=== PATIENT | female | born 1940 | race Caucasian/White ===

== ENCOUNTER 2020-07-15 12:53 | Inpatient (IN) | payer MEDICARE, SELFPAY ==
[2020-07-15 13:02] VITALS: BP 177/106; BP 199/72; PULSE 66; PULSE 68; RESP 16; TEMP 36.7; O2SAT 98; BMI 30.9
--- NOTE | 2020-07-15 13:06 | CT_ITS ---
EXAMINATION: CT BRAIN AND CT CERVICAL SPINE WITHOUT CONTRAST. CLINICAL INFORMATION: Fall. COMPARISON: CT brain 08/06/2019 TECHNIQUE: 5 mm thin axial and reformatted 2 mm thin coronal and sagittal images of brain were obtained. 3 mm thin axial and reformatted 2 mm thin sagittal and coronal images of cervical spine were obtained. DLP 1280. FINDINGS: Brain: There is no acute intra-axial, external bleed, masses, collection or midline shift. There is no acute infarction in evolution. The virk to white matter difference is maintained. The lateral ventricles are symmetrical and enlarged. Bone windows reveal no calvarial abnormality. Bilateral paranasal sinuses and mastoid air cells no calvarial abnormality seen. There is no scalp soft tissue abnormality. Cervical spine: There is reversal of cervical lordosis. The vertebral heights and alignment is normal. Is mild loss of C4-C5 and C6-C7 disc heights with ventral and posterior spondylosis. No lytic or sclerotic process seen. There is moderate left C2-C3, C3-C4, C4-C5 facet joint arthropathy. There is mild bilateral narrowing of neural foramina at these disc levels. There is mild ventral and posterior spondylosis dorsal spine. No visible acute fracture, dislocation or lytic process seen. The prevertebral and paravertebral soft tissues are normal. There is widely patent. The lung apices are clear. CT/CT cervical spine wo con IMPRESSION: No acute intracranial process seen. There is no acute fracture, dislocation or subluxation of cervical spine. Is bilateral facet joint arthropathy. No lytic or sclerotic process seen. Mild ventral and dorsal spondylosis is noted.
--- NOTE | 2020-07-15 13:06 | ECG_ITS ---
Test Reason : FALL Blood Pressure : / mmHG Vent. Rate : 065 BPM Atrial Rate : 065 BPM P-R Int : 156 ms QRS Dur : 082 ms QT Int : 432 ms P-R-T Axes : 035 000 033 degrees QTc Int : 449 ms Normal sinus rhythm Normal ECG When compared with ECG of 02-APR-2017 02:52, No significant change was found Referred By: Sera Aquino Electronically Signed By:CHELLY JONAS MD
--- NOTE | 2020-07-15 13:06 | CT_ITS ---
EXAMINATION: CT CHEST, CT ABDOMEN AND PELVIS WITHOUT CONTRAST CLINICAL INFORMATION: Fall. COMPARISON: CTA chest 04/02/2017. TECHNIQUE: 5 mm axial and reformatted 3 mm thin sagittal and coronal images of chest, abdomen and pelvis were obtained without contrast. DLP: 1050 mGy-cm FINDINGS: CHEST: The lungs are expanded with bilateral upper lobe ground-glass attenuation changes in the anterior segments and mild reticular interstitial prominence throughout both upper lobes and lower lobes. No acute consolidation or contusion seen. There is no pleural effusion or thickening. The heart size is enlarged. No pericardial effusion seen. The central trachea and bronchi are widely patent. Thyroid lobes are symmetrical and normal. No abnormal mediastinal or hilar lymph nodes seen. There is no pericardial effusion. The axilla and chest wall appear unremarkable. ABDOMEN AND PELVIS: The liver is lobulated and heterogeneous likely secondary to cirrhosis. The gallbladder has been removed. A few collateral vessels are seen in the splenic hilum. Visualized spleen, pancreas and bilateral adrenal glands are unremarkable. Both kidneys are normal size, shape and position. There is a 4 mm radiopaque calculi midpole left kidney. No caliectasis or hydronephrosis seen. There is a 9 mm exophytic cyst midpole right kidney. There is scattered stool and gas seen throughout the colon without distention. There is diffuse sigmoid diverticulosis and a few scattered diverticula in descending colon but no mural thickening and pericolic fat stranding. The small bowel loops are normal caliber. Appendix is normal caliber. No inflammatory changes seen in the abdomen. Imaging through the pelvis reveals unremarkable urinary bladder. The uterus is not visualized probably removed or atrophied. There is no free fluid. Bone windows reveal degenerative disc changes with vacuum disc phenomena L4-L5 disc level with mild spondylosis. There is bilateral L5-S1 and L4-L5 facet joint arthropathy. CT/CT abdomen pelvis wo con IMPRESSION: No acute abnormality seen in the chest. Mild interstitial prominence throughout both lungs could be secondary to breathing artifact or underlying chronic changes. No acute process seen in the abdomen. Nonobstructive small radiopaque calculi midpole left kidney. Exophytic cyst midpole right kidney. Likely cirrhosis of liver. Evidence of cholecystectomy. Diffuse sigmoid and scattered rest of the colon diverticulosis.
--- NOTE | 2020-07-15 13:13 | ED.FALL ---
HPI - Fall General Chief Complaint: Fall Stated Complaint: fall Time Seen by Provider: 07/15/20 13:05 Source: patient, EMS and automotive [employer] interpreter Mode of arrival: EMS Limitations: no limitations History of Present Illness HPI Narrative: patient states she went to the bathroom became dizzy and fell had LOC woke up on floor on floor all night since 1am complaint: fall Onset (ago): hour(s) (suspect 1 am) Fall from: out of bed Fall witnessed: no Place fall occurred: home Loss of consciousness: yes Prolonged down time: yes Symptoms prior to fall: dizziness Location of injury: head and pelvis Location of injury - extremities: left: shoulder Quality: aching Associated symptoms (after fall): headache Related Data Home Medications Medication Instructions Recorded Confirmed aspirin 81 mg PO DAILY 07/15/20 07/15/20 calcium carbonate-vitamin D3 1 tab PO BID 07/15/20 07/15/20 [Calcium 600 + D(3)] cholecalciferol (vitamin D3) 50 mcg PO DAILY 07/15/20 07/15/20 [Vitamin D3] lisinopril 40 mg PO DAILY 07/15/20 07/15/20 loratadine 10 mg PO DAILY 07/15/20 07/15/20 omeprazole 40 mg PO DAILY 07/15/20 07/15/20 oxybutynin chloride [Ditropan XL] 10 mg PO DAILY 07/15/20 07/15/20 quetiapine [Seroquel] 50 mg PO DAILY 07/15/20 07/15/20 sertraline 50 mg PO DAILY 07/15/20 07/15/20 trazodone 50 mg PO BEDTIME PRN 07/15/20 07/15/20 Allergies Allergy/AdvReac Type Severity Reaction Status Date / Time ibuprofen [IBUPROFEN] Allergy Intermediate SWELLING Unverified 05/26/20 15:33 cashew nut Allergy Unknown UNKNOWN Unverified 05/26/20 15:33 nut - unspecified [nut] Allergy Unknown UNKNOWN Unverified 05/26/20 15:33 perfume Allergy Unknown UNKNOWN Unverified 05/26/20 15:33 acetaminophen [From PERCOCET] AdvReac Unknown NAUSEA & Unverified 05/26/20 15:33 VOMITING oxycodone [From PERCOCET] AdvReac Unknown NAUSEA & Unverified 05/26/20 15:33 VOMITING DETERGENT Allergy Unknown UNKNOWN Uncoded 05/26/20 15:33 Review of Systems Review of Systems: Constitutional : No Fever, No Chills ENT/Mouth : No Ear Pain, No Hoarseness, No sore throat Eyes: No Eye Pain, No Swelling, No Redness, No Foreign Body Cardiovascular : No Chest Pain, No SOB Respiratory : No Cough, No Dyspnea Gastrointestinal : No Nausea, No Vomiting, No Diarrhea, No abdominal Pain Genitourinary : No Dysuria, No Hematuria Musculoskeletal : positive joint pain, No Myalgias, No Joint Swelling Skin : No Skin lacerations, No rash Neuro : No Weakness, No Numbness, No Loss of Consciousness, No Dizziness, pos Headache Psych : No Anxiety/Panic, No Depression Heme/Lymph: no easy bruising, no Lymphadenopathy Endocrine : No Polyuria, No Polydipsia All other systems reviewed and are negative [facility] Past Medical History Medical History Asthma Dementia HTN (hypertension) Social History Social History (Updated 07/15/20 @ 13:34 by Sera Aquino DO) Alcohol intake: never Smoking Status: Never smoker Use of substances other than those prescribed or required for medical reasons: No Advance Directives: No Advance Directives Information Provided: Yes Physical Exam Vital Signs: Vital Signs: Last Vital Signs Temp 98.0 F 07/15/20 13:02 Pulse 68 07/15/20 13:02 Resp 16 07/15/20 13:02 BP 177/106 H 07/15/20 13:02 Pulse Ox 98 07/15/20 13:02 Body Mass Index 30.9 Appearance: Alert. Oriented X3. No acute distress. Eyes: Pupils equal, round and reactive to light. ENT: Pharynx normal. Neck: Normal inspection. Neck supple. CVS: Normal heart rate and rhythm. Pulses normal. Respiratory: No respiratory distress. Breath sounds normal. Abdomen: Soft and nontender. Skin: Skin warm and dry. Normal skin color. Normal skin turgor. Extremities: No lower extremity edema. No calf ttp L hip erythema on lateral aspect, ttp L shoulder - distal NV intact, back normal Neuro: Oriented X 3. No motor deficit. No sensory deficit. Course Course Course Narrative: increase in LFTs, more weak, fall risk at home, ammonia pending, CT scans negative for trauma, IVF ordered, will likely need admit for falls/weakness repeat CPK MDM - Fall MDM Narrative Medical decision making narrative: 80 yo female with hx of dementia, HTN here with fall at home - EMS notes sometime around 1 am, she c/o head stroke and LOC, has redness on L hip and L shoulder - NV intact, GCS 15, will need labs, EKG, CT head/cspine/chest/abdomen and pelvis for trauma, reports dizziness prior to event when she went to get up to use the bathroom Lab Data Result diagrams: 07/15/20 14:01 07/15/20 14: Labs: Lab Results 07/15/20 07/15/20 07/15/20 Range/Units 14: 14: 14:01 WBC 6.1 (4.8-10.8) X10*3/uL RBC 4.46 (4.20-5.50) X10*6/uL Hgb 14.8 (12.0-16.0) g/dl Hct 44.4 (37-47) % MCV 99.6 H (80-98) fL MCH 33.2 H (27.0-33.0) pg MCHC 33.3 (31.0-35.0) g/dl RDW 14.0 (11.0-16.0) % Plt Count 109 L (160-400) X10*3/uL MPV 11.2 (9.4-12.3) fL Immature Gran % (Auto) 0.5 H (0.0-0.4) % Neut % (Auto) 54.5 (45-73) % Lymph % (Auto) 34.9 (20-40) % [place] % (Auto) 8.3 (2-11) % Eos % (Auto) 1.5 (0-4) % Baso % (Auto) 0.3 (0-2) % Lymph # (Auto) 2.1 (1.2-4.9) X10*3/uL [place] # (Auto) 0.5 (0.1-1.2) X10*3/uL Eos # (Auto) 0.1 (0.0-0.4) X10*3/uL Baso # (Auto) 0.0 (0.0-0.2) X10*3/uL Abs Immat Gran (auto) 0.03 (0.00-0.03) X10*3/uL Absolute Neuts (auto) 3.3 (2.0-8.3) X10*3/uL Absolute Nucleated RBC 0.000 (0.0-0.012) X10*3/uL Nucleated RBC % (auto) 0.0 (0.0-0.2) /100WBC Sodium 143 (135-145) mmol/L Potassium 4.5 (3.3-5.1) mmol/l Chloride 107 (96-108) mmol/L Carbon Dioxide 28 (22-29) mmol/L Anion Gap 13 (12-20) BUN 18 H (9-16) mg/dL Creatinine 0.75 (0.5-1.4) mg/dL Estim Creat Clear Calc 51.2 Estimated GFR > 60 Random Glucose 101 (60-115) mg/dL Lactic Acid 1.2 (0.5-2.0) mmol/L Calcium 8.6 (8.4-10.2) mg/dL Magnesium 1.7 (1.6-2.6) mg/dL Total Bilirubin 2.9 H (0.0-1.0) mg/dL Direct Bilirubin 1.6 H (0.0-0.5) mg/dL AST 110 H (5-31) U/L ALT 41 H (0-31) U/L Alkaline Phosphatase 121 H (39-117) U/L Total Creatine Kinase 1490 H (26-140) U/L Troponin I High Sens (<3.5-17.0) ng/L Total Protein 6.6 (6.5-8.0) g/dL Albumin 3.3 L (3.5-5.0) g/dL Lipase 26 (8-78) U/L Ethyl Alcohol mg/dL 07/15/20 07/15/20 Range/Units 14:01 14:28 WBC (4.8-10.8) X10*3/uL RBC (4.20-5.50) X10*6/uL Hgb (12.0-16.0) g/dl Hct (37-47) % MCV (80-98) fL MCH (27.0-33.0) pg MCHC (31.0-35.0) g/dl RDW (11.0-16.0) % Plt Count (160-400) X10*3/uL MPV (9.4-12.3) fL Immature Gran % (Auto) (0.0-0.4) % Neut % (Auto) (45-73) % Lymph % (Auto) (20-40) % [place] % (Auto) (2-11) % Eos % (Auto) (0-4) % Baso % (Auto) (0-2) % Lymph # (Auto) (1.2-4.9) X10*3/uL [place] # (Auto) (0.1-1.2) X10*3/uL Eos # (Auto) (0.0-0.4) X10*3/uL Baso # (Auto) (0.0-0.2) X10*3/uL Abs Immat Gran (auto) (0.00-0.03) X10*3/uL Absolute Neuts (auto) (2.0-8.3) X10*3/uL Absolute Nucleated RBC (0.0-0.012) X10*3/uL Nucleated RBC % (auto) (0.0-0.2) /100WBC Sodium (135-145) mmol/L Potassium (3.3-5.1) mmol/l Chloride (96-108) mmol/L Carbon Dioxide (22-29) mmol/L Anion Gap (12-20) BUN (9-16) mg/dL Creatinine (0.5-1.4) mg/dL Estim Creat Clear Calc Estimated GFR Random Glucose (60-115) mg/dL Lactic Acid (0.5-2.0) mmol/L Calcium (8.4-10.2) mg/dL Magnesium (1.6-2.6) mg/dL Total Bilirubin (0.0-1.0) mg/dL Direct Bilirubin (0.0-0.5) mg/dL AST (5-31) U/L ALT (0-31) U/L Alkaline Phosphatase (39-117) U/L Total Creatine Kinase (26-140) U/L Troponin I High Sens 8.1 (<3.5-17.0) ng/L Total Protein (6.5-8.0) g/dL Albumin (3.5-5.0) g/dL Lipase (8-78) U/L Ethyl Alcohol < 10 mg/dL ECG Data Attestation: I personally reviewed and interpreted this ECG as follows: ECG interpretation date: 07/15/20 ECG interpretation time: 13:32 Interpretation: Rate: 65 Rhythm: NSR Keller: left, LVH Normal P waves. Normal PAMLEA. Normal QRS complex. ST T wave : normal qTC: normal prior studies: no acute ischemia The study has been interpreted contemporaneously by me. . Discharge Plan Discharge Clinical Impression: Syncope, Rhabdomyolysis, Elevated liver enzymes Patient Disposition: Admitted As Inpatient Prescriptions: No Action trazodone 50 mg Tablet 50 mg PO BEDTIME PRN (Reason: Sleep) RF: 0 oxybutynin chloride [Ditropan XL] 10 mg Tablet Extended Release 24hr 10 mg PO DAILY RF: 0 omeprazole 40 mg Capsule,Delayed Release(Dr/Ec) 40 mg PO DAILY RF: 0 aspirin 81 mg Tablet,Delayed Release (Dr/Ec) 81 mg PO DAILY RF: 0 lisinopril 40 mg Tablet 40 mg PO DAILY RF: 0 sertraline 50 mg Tablet 50 mg PO DAILY RF: 0 loratadine 10 mg Tablet 10 mg PO DAILY RF: 0 quetiapine [Seroquel] 50 mg Tablet 50 mg PO DAILY RF: 0 calcium carbonate-vitamin D3 [Calcium 600 + D(3)] 600 mg(1,500mg) -400 unit Tablet 1 tab PO BID RF: 0 cholecalciferol (vitamin D3) [Vitamin D3] 50 mcg (2,000 unit) Tablet 50 mcg PO DAILY RF: 0
[2020-07-15 14:07] LABS: MANUAL DIFF FLAG NO
[2020-07-15 14:10] LABS: Basophils Percent Auto 0.3 % (0-2); Eosinophils Absolute Auto 0.1 X10*3/uL (0.0-0.4); Eosinophils Percent Auto 1.5 % (0-4); Hematocrit 44.4 % (37-47); Hemoglobin 14.8 g/dl (12.0-16.0); Imm Gran Abs Auto 0.03 X10*3/uL (0.00-0.03); Imm Gran Pct Auto 0.5 % (0.0-0.4); Lymphocytes Absolute Auto 2.1 X10*3/uL (1.2-4.9); Lymphocytes Percent Auto 34.9 % (20-40); Mean Corpuscular HGB Conc 33.3 g/dl (31.0-35.0); Mean Corpuscular Hemoglobin 33.2 pg (27.0-33.0); Mean Corpuscular Volume 99.6 fL (80-98); Mean Platelet Volume 11.2 fL (9.4-12.3); Monocytes Absolute Auto 0.5 X10*3/uL (0.1-1.2); Monocytes Percent Auto 8.3 % (2-11); Neutrophils Absolute Auto 3.3 X10*3/uL (2.0-8.3); Neutrophils Percent Auto 54.5 % (45-73); Platelet Count 109 X10*3/uL (160-400); Red Blood Count 4.46 X10*6/uL (4.20-5.50); White Blood Count 6.1 X10*3/uL (4.8-10.8)
[2020-07-15] MEDS: ondansetron HCL 4 MG/2 ML VIAL IVPUSH (14:28)
[2020-07-15 14:33] LABS: Lactic Acid 1.2 mmol/L (0.5-2.0)
[2020-07-15 14:43] LABS: Troponin-I High Sensitivity 8.1 ng/L (<3.5-17.0)
[2020-07-15 14:54] LABS: Alanine Aminotransferase 41 U/L (0-31); Albumin Level 3.3 g/dL (3.5-5.0); Alkaline Phosphatase 121 U/L (39-117); Anion Gap 13 (12-20); Aspartate Amino Transferase 110 U/L (5-31); Bilirubin Direct 1.6 mg/dL (0.0-0.5); Bilirubin Total 2.9 mg/dL (0.0-1.0); Blood Urea Nitrogen 18 mg/dL (9-16); Calcium 8.6 mg/dL (8.4-10.2); Carbon Dioxide 28 mmol/L (22-29); Chloride 107 mmol/L (96-108); Creatinine Clr Calc Pharmacy 51.2; Estimated Glomerular Filt Rate > 60; Glucose Random 101 mg/dL (60-115); Lipase 26 U/L (8-78); Magnesium 1.7 mg/dL (1.6-2.6); Potassium 4.5 mmol/l (3.3-5.1); Sodium 143 mmol/L (135-145); Total Protein 6.6 g/dL (6.5-8.0)
[2020-07-15 15:00] LABS: Ethanol < 10 mg/dL
[2020-07-15] MEDS: 0.9 % Sodium Chloride 1,000 ML 999 ML IVCONT (16:22)
[2020-07-15 16:43] LABS: Glucose Urine UA NEG (NEG); Leukocyte Esterase Urine NEG (NEG); Nitrite Urine NEG (NEG); PH 6.5 (5.0-8.0); Urine Blood NEG (NEG); Urine Ketones NEG (NEG); Urine Protein NEG (NEG-TRACE)
[2020-07-15 16:46] LABS: Appearance Urine CLEAR; Color Urine YELLOW
[2020-07-15 17:03] LABS: Ammonia 60 umol/L (13-55)
--- NOTE | 2020-07-15 18:01 | P.HPHOSP_ITS ---
History of Present Illness Date of Service: 07/15/20 Chief Complaint: fall, syncope, muscle pain an 80 years old female with PMH of mild dementia, HTN, GERD, depression who presents to the hospital after sustaining a fall at home and stay onhe the floor for many hours. The patient reported waking up in the middle of the night to go to the bathroom. She is not sure what happened exactly if she tripped or she ju Tst lost her conscious and fell to the floor . She does not think she lost her conscious but remember hitting the floor with her head and left side of her body. She was unable to stand up again and remain the floor for so many hours trying to crawl to the bathroom. Seems she spent 1 day on the floor until her son came in the morning and so her. She lives by herself and her son visited her to take care of her needs. She she denies any headache, dizziness. In the emergency a CT scan of the head, spine, chest, abdomen and pelvis were done for trauma came back negative for any acute findings. Picture of liver cirrhosis suspected as well. Admitted for further evaluation and treatment. Review of Systems Review of Systems: No fever, chills or weakness No chest pain, palpitation No shortness of breath or coughing No abdominal pain, nausea or vomiting No urinary symptoms left-sided pain to her shoulder and hip [facility] Medical History Asthma Dementia HTN (hypertension) Social History (Updated 07/15/20 @ 13:34 by Sera Aquino DO) Alcohol intake: never Smoking Status: Never smoker Use of substances other than those prescribed or required for medical reasons: No Advance Directives: No Advance Directives Information Provided: Yes Meds Allergies Allergy/AdvReac Type Severity Reaction Status Date / Time ibuprofen [IBUPROFEN] Allergy Intermediate SWELLING Unverified 05/26/20 15:33 cashew nut Allergy Unknown UNKNOWN Unverified 05/26/20 15:33 nut - unspecified [nut] Allergy Unknown UNKNOWN Unverified 05/26/20 15:33 perfume Allergy Unknown UNKNOWN Unverified 05/26/20 15:33 acetaminophen [From PERCOCET] AdvReac Unknown NAUSEA & Unverified 05/26/20 15:33 VOMITING oxycodone [From PERCOCET] AdvReac Unknown NAUSEA & Unverified 05/26/20 15:33 VOMITING DETERGENT Allergy Unknown UNKNOWN Uncoded 05/26/20 15:33 Home Medications Medication Instructions Recorded Confirmed Type aspirin 81 mg PO DAILY 07/15/20 07/15/20 History calcium carbonate-vitamin D3 1 tab PO BID 07/15/20 07/15/20 History [Calcium 600 + D(3)] cholecalciferol (vitamin D3) 50 mcg PO DAILY 07/15/20 07/15/20 History [Vitamin D3] lisinopril 40 mg PO DAILY 07/15/20 07/15/20 History loratadine 10 mg PO DAILY 07/15/20 07/15/20 History omeprazole 40 mg PO DAILY 07/15/20 07/15/20 History oxybutynin chloride [Ditropan XL] 10 mg PO DAILY 07/15/20 07/15/20 History quetiapine [Seroquel] 50 mg PO DAILY 07/15/20 07/15/20 History sertraline 50 mg PO DAILY 07/15/20 07/15/20 History trazodone 50 mg PO BEDTIME PRN 07/15/20 07/15/20 History Physical Exam Vital Signs and Narrative: Vital Signs: Last Vital Signs Temp 98.0 F 07/15/20 13:02 Pulse 68 07/15/20 13:02 Resp 16 07/15/20 13:02 BP 177/106 H 07/15/20 13:02 Pulse Ox 98 07/15/20 13:02 Body Mass Index 30.9 Constitutional : Alert, oriented to time and place,not in distress Neck : Normal inspection, Supple Cardiovascular : RRR, S1 S2, no lower extremity edema Respiratory : Good bilateral air entry, no crackles, wheezes or rhonchi Gastrointestinal: soft, lax, Normal bowel sounds, Non tender Skin : Warm/Dry, bruises on the left shoulder and hip from the fall, no open wounds or drainage. Neurological : Alert & oriented x3, No focal deficit Results Labs CBC and Chem 7: 07/15/20 14:01 07/15/20 14:01 Labs: Laboratory Results - last 24 hr 07/15/20 07/15/20 07/15/20 14:01 14:01 14:01 MCV 99.6 H MCH 33.2 H MCHC 33.3 RDW 14.0 Plt Count 109 L MPV 11.2 Immature Gran % (Auto) 0.5 H Neut % (Auto) 54.5 Lymph % (Auto) 34.9 [place] % (Auto) 8.3 Eos % (Auto) 1.5 Baso % (Auto) 0.3 Lymph # (Auto) 2.1 [place] # (Auto) 0.5 Eos # (Auto) 0.1 Baso # (Auto) 0.0 Abs Immat Gran (auto) 0.03 Absolute Neuts (auto) 3.3 Absolute Nucleated RBC 0.000 Nucleated RBC % (auto) 0.0 Anion Gap 13 Estim Creat Clear Calc 51.2 Estimated GFR > 60 Random Glucose 101 Lactic Acid 1.2 Calcium 8.6 Magnesium 1.7 Total Bilirubin 2.9 H Direct Bilirubin 1.6 H AST 110 H ALT 41 H Alkaline Phosphatase 121 H Ammonia Total Creatine Kinase 1490 H Troponin I High Sens Total Protein 6.6 Albumin 3.3 L Lipase 26 Urine Color Urine Appearance Urine pH Ur Specific Energy Urine Protein Urine Glucose (UA) Urine Ketones Urine Blood Urine Nitrite Ur Leukocyte Esterase Ethyl Alcohol 07/15/20 07/15/20 07/15/20 14:01 14:28 16:30 MCV MCH MCHC RDW Plt Count MPV Immature Gran % (Auto) Neut % (Auto) Lymph % (Auto) [place] % (Auto) Eos % (Auto) Baso % (Auto) Lymph # (Auto) [place] # (Auto) Eos # (Auto) Baso # (Auto) Abs Immat Gran (auto) Absolute Neuts (auto) Absolute Nucleated RBC Nucleated RBC % (auto) Anion Gap Estim Creat Clear Calc Estimated GFR Random Glucose Lactic Acid Calcium Magnesium Total Bilirubin Direct Bilirubin AST ALT Alkaline Phosphatase Ammonia 60 H Total Creatine Kinase Troponin I High Sens 8.1 Total Protein Albumin Lipase Urine Color Urine Appearance Urine pH Ur Specific Energy Urine Protein Urine Glucose (UA) Urine Ketones Urine Blood Urine Nitrite Ur Leukocyte Esterase Ethyl Alcohol < 10 07/15/20 16:30 MCV MCH MCHC RDW Plt Count MPV Immature Gran % (Auto) Neut % (Auto) Lymph % (Auto) [place] % (Auto) Eos % (Auto) Baso % (Auto) Lymph # (Auto) [place] # (Auto) Eos # (Auto) Baso # (Auto) Abs Immat Gran (auto) Absolute Neuts (auto) Absolute Nucleated RBC Nucleated RBC % (auto) Anion Gap Estim Creat Clear Calc Estimated GFR Random Glucose Lactic Acid Calcium Magnesium Total Bilirubin Direct Bilirubin AST ALT Alkaline Phosphatase Ammonia Total Creatine Kinase Troponin I High Sens Total Protein Albumin Lipase Urine Color YELLOW Urine Appearance CLEAR Urine pH 6.5 Ur Specific Energy 1.020 Urine Protein NEG Urine Glucose (UA) NEG Urine Ketones NEG Urine Blood NEG Urine Nitrite NEG Ur Leukocyte Esterase NEG Ethyl Alcohol Imaging Radiologist's Impressions: Impressions Abdomen/Pelvis CT 07/15/20 13:06 IMPRESSION: No acute abnormality seen in the chest. Mild interstitial prominence throughout both lungs could be secondary to breathing artifact or underlying chronic changes. No acute process seen in the abdomen. Nonobstructive small radiopaque calculi midpole left kidney. Exophytic cyst midpole right kidney. Likely cirrhosis of liver. Evidence of cholecystectomy. Diffuse sigmoid and scattered rest of the colon diverticulosis. Cervical Spine CT 07/15/20 13:06 IMPRESSION: No acute intracranial process seen. There is no acute fracture, dislocation or subluxation of cervical spine. Is bilateral facet joint arthropathy. No lytic or sclerotic process seen. Mild ventral and dorsal spondylosis is noted. Chest CT 07/15/20 13:06 IMPRESSION: No acute abnormality seen in the chest. Mild interstitial prominence throughout both lungs could be secondary to breathing artifact or underlying chronic changes. No acute process seen in the abdomen. Nonobstructive small radiopaque calculi midpole left kidney. Exophytic cyst midpole right kidney. Likely cirrhosis of liver. Evidence of cholecystectomy. Diffuse sigmoid and scattered rest of the colon diverticulosis. Head CT 07/15/20 13:06 IMPRESSION: No acute intracranial process seen. There is no acute fracture, dislocation or subluxation of cervical spine. Is bilateral facet joint arthropathy. No lytic or sclerotic process seen. Mild ventral and dorsal spondylosis is noted. Assessment and Plan (1) Fall: Status: Acute (2) Increased ammonia level: Status: Acute (3) Syncope: Qualifiers: Syncope type: unspecified Qualified Code(s): R55 - Syncope and collapse Status: Acute (4) Rhabdomyolysis: Qualifiers: Rhabdomyolysis type: non-traumatic Qualified Code(s): M62.82 - Rhabdomyolysis Status: Acute an 80 years old female with PMH of mild dementia, HTN, GERD, depression who presents to the hospital after sustaining a fall at home Rhabdomyolysis Secondary to fall Significantly elevated CK to almost 2000 BUN increase, creatinine is still close to normal Keep on IV fluid to prevent kidney damage Monitor intake and output Follow BMP Syncope Unclear if the patient syncopized or just tripped or fall Keep on telemetry for any arrhythmia S CT scan of the head negative for any acute findings To do physical therapy Transaminitis Elevated ammonia level Picture of cirrhosis on the CT scan of the abdomen and pelvis baseline blood work showed transaminitis previously Will try to get more informationAnd monitor liver function HTN next Lyme continue lisinopril and aspirin Mood Disorder continue sertraline, Seroquel and trazodone DVT PPX Lovenox
[2020-07-15 19:06] LABS: SARS COV2 PCR INHOUSE NEGATIVE (Negative)
[2020-07-15 20:10] VITALS: BP 152/62; PULSE 70; RESP 20; TEMP 36.9; O2SAT 98
[2020-07-15] MEDS: Enoxaparin Sodium 40 MG/0.4 ML SYRINGE SUBCUT (20:59)
[2020-07-15] MEDS: 0.9 % Sodium Chloride 1,000 ML 100 ML IVCONT (20:59)
[2020-07-15 23:42] VITALS: BP 185/97; PULSE 70; RESP 20; TEMP 37.1; O2SAT 98
[2020-07-16] VITALS (13 sets, daily range): BP systolic 140–184; BP diastolic 49–81; PULSE 59–72; RESP 18–20; TEMP 36.7–37.1; O2SAT 96–100
[2020-07-16] MEDS: hydrALAZINE HCl 20 MG/ML VIAL 5 MG IVPUSH (01:35)
[2020-07-16] MEDS: Labetalol HCL 100 MG/20 ML VIAL 10 MG IVPUSH (03:35)
[2020-07-16] MEDS: Omeprazole 40 MG CAPSULE.DR PO (06:02)
[2020-07-16] MEDS: 0.9 % Sodium Chloride 1,000 ML 100 ML IVCONT (06:26)
[2020-07-16 07:10] LABS: Hematocrit 39.4 % (37-47); Mean Corpuscular Hemoglobin 33.1 pg (27.0-33.0); Mean Corpuscular Volume 100.3 fL (80-98); Mean Platelet Volume 12.6 fL (9.4-12.3); Platelet Count 119 X10*3/uL (160-400); Red Blood Count 3.93 X10*6/uL (4.20-5.50); Red Cell Distribution Width 14.2 % (11.0-16.0); White Blood Count 6.1 X10*3/uL (4.8-10.8)
[2020-07-16 07:32] LABS: Ammonia 86 umol/L (13-55)
[2020-07-16 08:07] LABS: Alanine Aminotransferase 38 U/L (0-31); Albumin Level 2.9 g/dL (3.5-5.0); Alkaline Phosphatase 97 U/L (39-117); Anion Gap 10 (12-20); Aspartate Amino Transferase 92 U/L (5-31); Bilirubin Direct 1.4 mg/dL (0.0-0.5); Bilirubin Total 2.5 mg/dL (0.0-1.0); Blood Urea Nitrogen 15 mg/dL (9-16); Carbon Dioxide 27 mmol/L (22-29); Chloride 108 mmol/L (96-108); Creatinine Clr Calc Pharmacy 49.8; Estimated Glomerular Filt Rate > 60; Glucose Random 82 mg/dL (60-115); Potassium 4.1 mmol/l (3.3-5.1); Sodium 141 mmol/L (135-145); Total Protein 5.5 g/dL (6.5-8.0)
[2020-07-16] MEDS: 0.9 % Sodium Chloride Flush 3 ML SYRINGE IVFLUSH (08:59)
[2020-07-16] MEDS: Lactulose 20 GM/30 ML SOLUTION PO (09:12)
[2020-07-16] MEDS: amLODIPine Besylate 2.5 MG TABLET PO (09:13)
[2020-07-16] MEDS: QUEtiapine Fumarate 50 MG TABLET PO (09:13)
[2020-07-16] MEDS: Aspirin Enteric Coated 81 MG TABLET.DR PO (09:13)
[2020-07-16] MEDS: lisinopriL 40 MG TABLET PO (09:13)
[2020-07-16] MEDS: Sertraline HCL 50 MG TABLET PO (09:14)
--- NOTE | 2020-07-16 10:39 | MHC.CM.PN ---
CM spoke with Daughter/Yolande (Patient has Dementia) Patient lives alone and she uses both a cane and a walker to assist with mobility. Yolande is her Mother's CCA SKIDDER (12 hours and 45 minutes/week) and the goal for dc is to return home with a new referral to [facility], for home PT, with CCA's approval.Patient's Son/Sinan is the HCP and PCP is Dr. Carine Patel.CM has initiated and will follow for dc planning. IMM addressed with Yolande and the original has been mailed certified letter to her and a copy has been placed on the chart.
--- NOTE | 2020-07-16 15:35 | HO.PM.IMPN ---
Subjective Subjective Date of Service: 07/16/20 Interval History: the patient was seen and evaluated this morning Laying in bed, feels comfortable Denies any fever, chills or shortness of breath Pain has improved since last night, she reports seeing main and water in the room which all disappeared and she thing that the Holy spirit reaching out to her No reported other overnight events. Physical Exam Vital Signs: Vital Signs: Last Vital Signs Temp 98.8 F 07/16/20 15: Pulse 64 07/16/20 15: Resp 20 07/16/20 15: BP 174/62 H 07/16/20 15: Pulse Ox 99 07/16/20 15: Body Mass Index 30.9 Constitutional : Alert, oriented to time and place,not in distress Neck : Normal inspection, Supple Cardiovascular : RRR, S1 S2, no lower extremity edema Respiratory : Good bilateral air entry, no crackles, wheezes or rhonchi Gastrointestinal: soft, lax, Normal bowel sounds, Non tender Skin : Warm/Dry, bruises on the left shoulder and hip from the fall, no open wounds or drainage. Neurological : Alert & oriented x3, No focal deficit Objective Data Current Medications Generic Name Dose Route Start Last Admin Trade Name Freq PRN Reason Stop Dose Admin Al Hydroxide/Mg Hydroxide 30 ml 07/15/20 19:51 Magnesium Hydrox/Alum Hydrox 30 Ml Oral.Susp PO Q4H PRN Heartburn/Nausea Amlodipine Besylate 2.5 mg 07/16/20 09:00 07/16/20 09:13 Amlodipine Besylate 2.5 Mg Tablet PO 2.5 mg DAILY JL Administration Protocol Aspirin 81 mg 07/16/20 09:00 07/16/20 09:13 Aspirin Enteric Coated 81 Mg Tablet.Dr PO 81 mg DAILY JL Administration Enoxaparin Sodium 40 mg 07/15/20 21:00 07/15/20 20:59 Enoxaparin Sodium 40 Mg/0.4 Ml Syringe SUBCUT 40 mg Q24H JL Administration Sodium Chloride 1,000 mls @ 60 mls/hr 07/15/20 19:51 07/16/20 11:18 Ns IVCONT 60 mls/hr .[id number] JL Infusion Lisinopril 40 mg 07/16/20 09:00 07/16/20 09:13 Lisinopril 40 Mg Tablet PO 40 mg DAILY JL Administration Protocol Omeprazole 40 mg 07/16/20 06:30 07/16/20 06:02 Omeprazole 40 Mg Capsule. PO 40 mg DAILY@0630 [facility] Administration Pharmacy Consult 1 each 07/15/20 14:59 Consult Rx Perform Med Rec MISCELLANE ONCE PRN Consult order Quetiapine Fumarate 50 mg 07/16/20 09:00 07/16/20 09:13 Quetiapine Fumarate 50 Mg Tablet PO 50 mg DAILY JL Administration Sertraline HCl 50 mg 07/16/20 09:00 07/16/20 09:14 Sertraline Hcl 50 Mg Tablet PO 50 mg DAILY JL Administration Sodium Chloride 3 ml 07/16/20 00:00 07/16/20 08:59 0.9 % Sodium Chloride Flush 3 Ml Syringe IVFLUSH 3 ml QSHIFT JL Administration Trazodone HCl 50 mg 07/15/20 19:51 Trazodone Hcl 50 Mg Tablet PO BEDTIME PRN Sleep Labs CBC & Chem 7: 07/16/20 06:10 07/16/20 06:10 Assessment and Plan (1) Fall: Status: Acute (2) Increased ammonia level: Status: Acute (3) Syncope: Status: Acute (4) Rhabdomyolysis: Status: Acute Assessment and Plan: an 80 years old female with PMH of mild dementia, HTN, GERD, depression who presents to the hospital after sustaining a fall at home Rhabdomyolysis Secondary to fall Significantly elevated CK to 1500 BUN and creatinine improved, close to normal Keep on IV fluid to prevent kidney damage Monitor intake and output Follow BMP Fall From the story seems like the patient has just tripped for fall and did not syncopized No arrhythmia on telemetry CT scan of the head negative for any acute findings physical therapy Transaminitis Elevated ammonia level improving Picture of cirrhosis on the CT scan of the abdomen and pelvis, no clear underlying cause but reported to be known by patient and family baseline blood work showed transaminitis previously monitor liver function to be follow as outpatient with pcp uncontrolled HTN continue lisinopril and aspirin start Amlodipine monitor BP Mood Disorder continue sertraline, Seroquel and trazodone DVT PPX Lovenox
[2020-07-16] MEDS: Enoxaparin Sodium 40 MG/0.4 ML SYRINGE SUBCUT (22:00)
[2020-07-17] VITALS (7 sets, daily range): BP systolic 130–184; BP diastolic 60–78; PULSE 69–82; RESP 18–20; TEMP 36.4–37.6; O2SAT 93–98
[2020-07-17] MEDS: Omeprazole 40 MG CAPSULE.DR PO (06:27)
[2020-07-17 07:28] LABS: Hematocrit 38.3 % (37-47); Imm Gran Abs Auto 0.01 X10*3/uL (0.00-0.03); Imm Gran Pct Auto 0.2 % (0.0-0.4); MANUAL DIFF FLAG SCAN; Mean Corpuscular Hemoglobin 33.2 pg (27.0-33.0); PLT CLUMP 1; Red Cell Distribution Width 14.6 % (11.0-16.0); SCAN SMEAR FLAG 1
[2020-07-17 07:30] LABS: Basophils Percent Auto 0.2 % (0-2); Eosinophils Absolute Auto 0.2 X10*3/uL (0.0-0.4); Eosinophils Percent Auto 4.2 % (0-4); Hemoglobin 12.7 g/dl (12.0-16.0); Lymphocytes Absolute Auto 2.3 X10*3/uL (1.2-4.9); Lymphocytes Percent Auto 48.6 % (20-40); Mean Corpuscular HGB Conc 33.2 g/dl (31.0-35.0); Mean Platelet Volume 12.2 fL (9.4-12.3); Monocytes Absolute Auto 0.6 X10*3/uL (0.1-1.2); Monocytes Percent Auto 12.7 % (2-11); Neutrophils Absolute Auto 1.6 X10*3/uL (2.0-8.3); Neutrophils Percent Auto 34.1 % (45-73); Platelet Count 100 X10*3/uL (160-400); Red Blood Count 3.83 X10*6/uL (4.20-5.50); White Blood Count 4.8 X10*3/uL (4.8-10.8)
[2020-07-17 07:50] LABS: Alanine Aminotransferase 36 U/L (0-31); Albumin Level 2.8 g/dL (3.5-5.0); Alkaline Phosphatase 99 U/L (39-117); Anion Gap 10 (12-20); Aspartate Amino Transferase 74 U/L (5-31); Bilirubin Total 1.7 mg/dL (0.0-1.0); Blood Urea Nitrogen 15 mg/dL (9-16); Calcium 7.4 mg/dL (8.4-10.2); Carbon Dioxide 26 mmol/L (22-29); Chloride 111 mmol/L (96-108); Creatinine Clr Calc Pharmacy 49.8; Estimated Glomerular Filt Rate > 60; Glucose Random 82 mg/dL (60-115); Potassium 4.2 mmol/l (3.3-5.1); Sodium 143 mmol/L (135-145); Total Protein 5.4 g/dL (6.5-8.0)
[2020-07-17 07:54] LABS: SLIDE REVIEW VERIFIED
[2020-07-17] MEDS: lisinopriL 40 MG TABLET PO (08:40)
[2020-07-17] MEDS: amLODIPine Besylate 2.5 MG TABLET PO (08:40)
[2020-07-17] MEDS: Aspirin Enteric Coated 81 MG TABLET.DR PO (08:43)
[2020-07-17] MEDS: 0.9 % Sodium Chloride Flush 3 ML SYRINGE IVFLUSH (08:43)
[2020-07-17] MEDS: Sertraline HCL 50 MG TABLET PO (08:43)
[2020-07-17] MEDS: QUEtiapine Fumarate 50 MG TABLET PO (08:43)
[2020-07-17] MEDS: Lactulose 20 GM/30 ML SOLUTION PO ×2 (11:00→20:08)
--- NOTE | 2020-07-17 13:32 | P.PNIM_ITS ---
Subjective Subjective Date of Service: 07/17/20 Interval History: the patient was seen and evaluated this morning Laying in bed, feels comfortable Denies any fever, chills or shortness of breath Complaining pain in joints specially the hip Seems to be mildly confused this morning more than yesterday No reported other overnight events. Review of Systems Review of Systems: Yes all other systems are reviewed and are negative Constitutional No fever, chills or weakness No chest pain, palpitation No shortness of breath or coughing No abdominal pain, nausea or vomiting No urinary symptoms No any rash or wounds Physical Exam Vital Signs: Vital Signs: Last Vital Signs Temp 97.6 F 07/17/20 11:34 Pulse 80 07/17/20 11:34 Resp 18 07/17/20 11:34 BP 130/67 07/17/20 11:34 Pulse Ox 97 07/17/20 11:34 Body Mass Index 30.9 Constitutional : Alert, oriented to time and place,not in distress Neck : Normal inspection, Supple Cardiovascular : RRR, S1 S2, no lower extremity edema Respiratory : Good bilateral air entry, no crackles, wheezes or rhonchi Gastrointestinal: soft, lax, Normal bowel sounds, Non tender Skin : Warm/Dry, bruises on the left shoulder and hip from the fall, no open w ounds or drainage. Neurological : Alert & oriented x3, No focal deficit Objective Data Current Medications Generic Name Dose Route Start Last Admin Trade Name Freq PRN Reason Stop Dose Admin Al Hydroxide/Mg Hydroxide 30 ml 07/15/20 19:51 Magnesium Hydrox/Alum Hydrox 30 Ml Oral.Susp PO Q4H PRN Heartburn/Nausea Amlodipine Besylate 2.5 mg 07/17/20 09:00 07/17/20 08:40 Amlodipine Besylate 2.5 Mg Tablet PO 2.5 mg DAILY JL Administration Protocol Aspirin 81 mg 07/16/20 09:00 07/17/20 08:43 Aspirin Enteric Coated 81 Mg Tablet.Dr PO 81 mg DAILY JL Administration Enoxaparin Sodium 40 mg 07/15/20 21:00 07/16/20 22:00 Enoxaparin Sodium 40 Mg/0.4 Ml Syringe SUBCUT 40 mg Q24H JL Administration Sodium Chloride 1,000 mls @ 60 mls/hr 07/15/20 19:51 07/17/20 09:30 Ns IVCONT Not Given .[id number] [facility] Lisinopril 40 mg 07/16/20 09:00 07/17/20 08:40 Lisinopril 40 Mg Tablet PO 40 mg DAILY [facility] Administration Protocol Omeprazole 40 mg 07/16/20 06:30 07/17/20 06:27 Omeprazole 40 Mg Capsule. PO 40 mg DAILY@0630 [facility] Administration Pharmacy Consult 1 each 07/15/20 14:59 Consult Rx Perform Med Rec MISCELLANE ONCE PRN Consult order Quetiapine Fumarate 50 mg 07/16/20 09:00 07/17/20 08:43 Quetiapine Fumarate 50 Mg Tablet PO 50 mg DAILY [facility] Administration Sertraline HCl 50 mg 07/16/20 09:00 07/17/20 08:43 Sertraline Hcl 50 Mg Tablet PO 50 mg DAILY JL Administration Sodium Chloride 3 ml 07/16/20 00:00 07/17/20 08:43 0.9 % Sodium Chloride Flush 3 Ml Syringe IVFLUSH 3 ml QSHIFT [facility] Administration Trazodone HCl 50 mg 07/15/20 19:51 Trazodone Hcl 50 Mg Tablet PO BEDTIME PRN Sleep Labs CBC & Chem 7: 07/17/20 06:47 07/17/20 06:47 Microbiology Microbiology Results: Microbiology 07/15/20 14:28 Blood - Venous Blood Culture - Preliminary No growth after 24 hours. 07/15/20 14:01 Blood - Venous Blood Culture - Preliminary No growth after 24 hours. Assessment and Plan (1) Fall: Status: Acute (2) Increased ammonia level: Status: Acute (3) Syncope: Status: Acute (4) Rhabdomyolysis: Status: Acute Assessment and Plan: an 80 years old female with PMH of mild dementia, HTN, GERD, depression who presents to the hospital after sustaining a fall at home Metabolic encephalopathy Likely secondary to inpatient delirium Avoid medications that might worsen mentation Re orientation Use small dose of Seroquel of needed Rhabdomyolysis Secondary to fall Resolved Gentle IVF, to DC Monitor intake and output Follow BMP Fall From the story seems like the patient has just tripped for fall and did not syncopized No arrhythmia on telemetry CT scan of the head negative for any acute findings Pending physical therapy Transaminitis Elevated ammonia level improving Picture of cirrhosis on the CT scan of the abdomen and pelvis, no clear underlying cause but reported to be known by patient and family baseline blood work showed transaminitis previously monitor liver function to be follow as outpatient with pcp uncontrolled HTN continue lisinopril and aspirin start Amlodipine monitor BP Mood Disorder continue sertraline, Seroquel and trazodone DVT PPX Lovenox
[2020-07-17] MEDS: Enoxaparin Sodium 40 MG/0.4 ML SYRINGE SUBCUT (20:08)
[2020-07-17] MEDS: QUEtiapine Fumarate 25 MG TABLET PO (20:08)
[2020-07-18] VITALS (10 sets, daily range): BP systolic 126–236; BP diastolic 58–101; PULSE 61–88; RESP 18–20; TEMP 36.4–37.6; O2SAT 95–98; BMI 30.9
[2020-07-18] MEDS: 0.9 % Sodium Chloride 1,000 ML 60 ML IVCONT ×2 (01:21→18:07)
[2020-07-18] MEDS: Omeprazole 40 MG CAPSULE.DR PO (06:00)
[2020-07-18 06:18] LABS: Hematocrit 37.1 % (37-47); Hemoglobin 12.3 g/dl (12.0-16.0); Mean Corpuscular HGB Conc 33.2 g/dl (31.0-35.0); Mean Corpuscular Hemoglobin 33.2 pg (27.0-33.0); Mean Corpuscular Volume 100.3 fL (80-98); Mean Platelet Volume 12.3 fL (9.4-12.3); Platelet Count 100 X10*3/uL (160-400); Red Cell Distribution Width 14.6 % (11.0-16.0); White Blood Count 6.4 X10*3/uL (4.8-10.8)
[2020-07-18 06:43] LABS: Ammonia 53 umol/L (13-55)
[2020-07-18 07:13] LABS: Anion Gap 8 (12-20); Blood Urea Nitrogen 14 mg/dL (9-16); Calcium 7.8 mg/dL (8.4-10.2); Carbon Dioxide 27 mmol/L (22-29); Chloride 109 mmol/L (96-108); Creatinine Clr Calc Pharmacy 60.9; Estimated Glomerular Filt Rate > 60; Glucose Random 90 mg/dL (60-115); Potassium 3.8 mmol/l (3.3-5.1); Sodium 140 mmol/L (135-145)
[2020-07-18] MEDS: Aspirin Enteric Coated 81 MG TABLET.DR PO (08:00)
[2020-07-18] MEDS: Sertraline HCL 50 MG TABLET PO (08:00)
[2020-07-18] MEDS: QUEtiapine Fumarate 50 MG TABLET PO (08:00)
[2020-07-18] MEDS: amLODIPine Besylate 2.5 MG TABLET PO (08:00)
[2020-07-18] MEDS: lisinopriL 40 MG TABLET PO (08:01)
[2020-07-18 08:39] LABS: HBS Num1 1.32 mIU/mL (0-7.99); HBc Num1 0.11 S/CO (0.00-0.79); HBsAGNum1 0.22 S/CO (0.00-0.99); Hepatitis B Core Antibody Nonreactive (Nonreactive); Hepatitis B Surface Antigen Negative (Negative); ~HepC Num1 0.13 S/CO (0.00-0.79); ~Hepatitis B Surface Antibody NONREACTIVE (Nonreactive); ~Hepatitis C Antibody Nonreactive (Nonreactive)
--- NOTE | 2020-07-18 11:35 | HO.PM.IMPN ---
Subjective Subjective Interval History: the patient was seen and evaluated this morning Laying in bed, feels tired Denies any fever, chills or shortness of breath Complaining pain in joints specially the hip Seems to be mildly confused this morning but still recognize I am her doctor and she is in the hospital. Able to follow orders by physical therapy No reported other overnight events. Review of Systems Review of Systems: Yes all other systems are reviewed and are negative Constitutional No fever, chills but reported feeling weakness No chest pain, palpitation No shortness of breath or coughing No abdominal pain, nausea or vomiting No urinary symptoms No any rash or wounds Pean in her buttocks at the side were she feels Physical Exam Vital Signs: Vital Signs: Last Vital Signs Temp 97.6 F 07/18/20 11: Pulse 61 07/18/20 11: Resp 18 07/18/20 11:21 BP 126/58 L 07/18/20 11: Pulse Ox 95 07/18/20 11: Body Mass Index 30.9 Constitutional : Alert, oriented to time and place,not in distress Neck : Normal inspection, Supple Cardiovascular : RRR, S1 S2, no lower extremity edema Respiratory : Good bilateral air entry, no crackles, wheezes or rhonchi Gastrointestinal: soft, lax, Normal bowel sounds, Non tender Skin : Warm/Dry, bruises on the left shoulder and hip from the fall, no open wounds or drainage. Neurological : Alert & oriented x3, No focal deficit Objective Data Current Medications Generic Name Dose Route Start Last Admin Trade Name Freq PRN Reason Stop Dose Admin Al Hydroxide/Mg Hydroxide 30 ml 07/15/20 19:51 Magnesium Hydrox/Alum Hydrox 30 Ml Oral.Susp PO Q4H PRN Heartburn/Nausea Amlodipine Besylate 2.5 mg 07/17/20 09:00 07/18/20 08:00 Amlodipine Besylate 2.5 Mg Tablet PO 2.5 mg DAILY JL Administration Protocol Aspirin 81 mg 07/16/20 09:00 07/18/20 08:00 Aspirin Enteric Coated 81 Mg Tablet.Dr PO 81 mg DAILY JL Administration Enoxaparin Sodium 40 mg 07/15/20 21:00 07/17/20 20:08 Enoxaparin Sodium 40 Mg/0.4 Ml Syringe SUBCUT 40 mg Q24H JL Administration Sodium Chloride 1,000 mls @ 60 mls/hr 07/15/20 19:51 07/18/20 01:21 Ns IVCONT 60 mls/hr .[id number] JL Administration Lactulose 20 gm 07/17/20 21:00 07/17/20 20:08 Lactulose 20 Gm/30 Ml Solution PO 20 gm BEDTIME JL Administration Lisinopril 40 mg 07/16/20 09:00 07/18/20 08:01 Lisinopril 40 Mg Tablet PO 40 mg DAILY JL Administration Protocol Omeprazole 40 mg 07/16/20 06:30 07/18/20 06:00 Omeprazole 40 Mg Capsule. PO 40 mg DAILY@0630 JL Administration Pharmacy Consult 1 each 07/15/20 14:59 Consult Rx Perform Med Rec MISCELLANE ONCE PRN Consult order Quetiapine Fumarate 50 mg 07/16/20 09:00 07/18/20 08:00 Quetiapine Fumarate 50 Mg Tablet PO 50 mg DAILY JL Administration Quetiapine Fumarate 25 mg 07/17/20 21:00 07/17/20 20:08 Quetiapine Fumarate 25 Mg Tablet PO 25 mg BEDTIME JL Administration Sertraline HCl 50 mg 07/16/20 09:00 07/18/20 08:00 Sertraline Hcl 50 Mg Tablet PO 50 mg DAILY JL Administration Sodium Chloride 3 ml 07/16/20 00:00 07/18/20 08:00 0.9 % Sodium Chloride Flush 3 Ml Syringe IVFLUSH Not Given QSHIFT JL Trazodone HCl 50 mg 07/15/20 19:51 Trazodone Hcl 50 Mg Tablet PO BEDTIME PRN Sleep Labs CBC & Chem 7: 07/18/20 05:54 07/18/20 05:54 Microbiology Microbiology Results: Microbiology 07/15/20 14:28 Blood - Venous Blood Culture - Preliminary No growth after 48 hours. 07/15/20 14:01 Blood - Venous Blood Culture - Preliminary No growth after 48 hours. Assessment and Plan (1) Fall: Status: Acute (2) Increased ammonia level: Status: Acute (3) Syncope: Status: Acute (4) Rhabdomyolysis: Status: Acute Assessment and Plan: an 80 years old female with PMH of mild dementia, HTN, GERD, depression who presents to the hospital after sustaining a fall at home Metabolic encephalopathy Likely secondary to inpatient delirium Improving Avoid medications that might worsen mentation Re orientation Use small dose of Seroquel of needed Rhabdomyolysis Secondary to fall Resolved Gentle IVF DC Monitor intake and output Follow BMP Fall From the story seems like the patient has just tripped for fall and did not syncopized No arrhythmia on telemetry CT scan of the head negative for any acute findings Pending physical therapy Transaminitis Elevated ammonia level LFT and ammonia improved Picture of cirrhosis on the CT scan of the abdomen and pelvis, reported to be known by patient and family baseline blood work showed transaminitis previously monitor liver function to be follow as outpatient with PCP uncontrolled HTN better control today continue lisinopril and aspirin continue Amlodipine monitor BP Mood Disorder continue sertraline, Seroquel and trazodone Physcial deconditioning Requiring 247 care or to go to SNF DVT PPX Lovenox
--- NOTE | 2020-07-18 12:41 | MHC.CM.PN ---
ANNY spoke to pts daughter Yolande this morning to discuss pts current services. Yolande reports she is the pts T[employer]EM[employer]. The pt currently gets 13 hours of T[employer] SERV[employer] services per week however she sees her daily. ANNY spoke to pts son, Celio who is also the pts HCP. ANNY explained recommendations made by PT and Celio reports he is worried about the pt being at home right now. He reports he does not think he and his sister could provide 24/7 care. He hopes that the pt can go to short term rehab with a goal of returning home. He does not have a preferred facility however would like CM to find one with Faroese speaking staff so that the pt will be more comfortable. He asks that CM find out where a bed may be available in the local area and if they have Faroese speaking staff and then he will choose. CM made a referral to area SNFs contracted with pts insurance. Once bed availability is known, CM will contact Celio again.
--- NOTE | 2020-07-18 13:47 | MHC.CM.PN ---
MULTIPLE USP FACILITIES OFFERING PT A BED FOR TODAY. CM HAS ATTEMPTED TO REACH PTS SON/HCP, SHAILESH ([phone]) TWICE TO DISCUSS PREFERENCES. VM LEFT FOR HIM REQUESTING RETURN CALL
--- NOTE | 2020-07-18 14:38 | MHC.CM.PN ---
CM spoke to pts son, Celio ([phone]) and reviewed the fpc facilities that are offering beds. Celio reported he would choose [facility] because it is near pts home and she is familiar with the area however he is worried if she is able to see her home out the window she will try to leave the facility. He reported [facility] on [address] would be his preference and indicated it was near his home. ANNY explained that the facility would request auth from the insurance company and once that was obtained the pt would be ready to transfer. ANNY will call him back once auth is obtained. ANNY contacted the liaison from [facility] and asked that she submit the auth request. She reported she was now unsure if the pts bed would be ready today because they were doing a room change. She will let this expert medical writer know once she is sure about the bed availability.
[2020-07-18] MEDS: QUEtiapine Fumarate 25 MG TABLET PO (20:36)
[2020-07-18] MEDS: Enoxaparin Sodium 40 MG/0.4 ML SYRINGE SUBCUT (20:36)
[2020-07-18] MEDS: Lactulose 20 GM/30 ML SOLUTION PO (20:36)
[2020-07-18] MEDS: hydrALAZINE HCl 20 MG/ML VIAL 5 MG IVPUSH (20:36)
[2020-07-18] MEDS: 0.9 % Sodium Chloride Flush 3 ML SYRINGE IVFLUSH (20:47)
[2020-07-19] VITALS: BP 186/54; PULSE 85; RESP 18; TEMP 37.3; O2SAT 98
--- NOTE | 2020-07-19 01:51 | PC.NURSE ---
2044 P-BP-182/78 P-88 ASYMPTOMATIC I- NOTIFIED.ORDERED 5MG IV HYDRALIZINE E-BP AFTER 1 HOUR 133/77 P-87 0030 P-BP-186/54 P-85 I- NOTIFIED.ORDERED TO JAILYN TO MONITOR
[2020-07-19 03:23] VITALS: BP 184/58; PULSE 77; RESP 18; TEMP 37.9; O2SAT 98
[2020-07-19] MEDS: Omeprazole 40 MG CAPSULE.DR PO (05:47)
[2020-07-19 07:47] LABS: Anion Gap 10 (12-20); Blood Urea Nitrogen 13 mg/dL (9-16); Calcium 7.7 mg/dL (8.4-10.2); Carbon Dioxide 27 mmol/L (22-29); Chloride 107 mmol/L (96-108); Creatinine Clr Calc Pharmacy 58.1; Estimated Glomerular Filt Rate > 60; Glucose Random 80 mg/dL (60-115); Sodium 140 mmol/L (135-145)
[2020-07-19 07:49] VITALS: BP 189/74; PULSE 71; RESP 18; TEMP 36.8; O2SAT 99
[2020-07-19] MEDS: 0.9 % Sodium Chloride Flush 3 ML SYRINGE IVFLUSH (08:49)
[2020-07-19] MEDS: Aspirin Enteric Coated 81 MG TABLET.DR PO (08:49)
[2020-07-19] MEDS: Sertraline HCL 50 MG TABLET PO (08:49)
[2020-07-19] MEDS: amLODIPine Besylate 2.5 MG TABLET 5 MG PO (08:49)
[2020-07-19] MEDS: lisinopriL 40 MG TABLET PO (08:49)
[2020-07-19 11:16] VITALS: BP 189/74; PULSE 71; O2SAT 99
[2020-07-19 11:43] VITALS: BP 154/70; PULSE 67; RESP 18; TEMP 37.2; O2SAT 99
[2020-07-19 11:45] LABS: Glucose, Whole Blood 95 mg/dL (60-115)
--- NOTE | 2020-07-19 12:36 | MHC.CM.PN ---
Patient has been medically cleared for dc to SNF today. CM spoke with Son/HCP/Celio and addressed the Second IMM with him(Patient has Dementia). CM informed Son that Patient will be dc to [facility] today at 4 PM, via [facility]. Son is aware of and in agreement with the dc plan.Son is aware that first choice facility- [facility] does NOT have an available bed today.
--- NOTE | 2020-07-19 12:55 | PM.DS ---
DS: Providers Provider Date of admission: 07/15/20 17:33 Primary care physician: Carine Patel DO DS: Diagnosis Discharge Diagnosis (1) Fall: Status: Acute (2) Increased ammonia level: Status: Acute (3) Syncope: Status: Acute (4) Rhabdomyolysis: Status: Acute (5) Metabolic encephalopathy: Status: Acute (6) Elevated liver enzymes: Status: Acute DS: Summary Hospital Course Hospital Course: Admission note HPI an 80 years old female with PMH of mild dementia, HTN, GERD, depression who presents to the hospital after sustaining a fall at home and stay onhe the floor for many hours. The patient reported waking up in the middle of the night to go to the bathroom. She is not sure what happened exactly if she tripped or she ju Tst lost her conscious and fell to the floor . She does not think she lost her conscious but remember hitting the floor with her head and left side of her body. She was unable to stand up again and remain the floor for so many hours trying to crawl to the bathroom. Seems she spent 1 day on the floor until her son came in the morning and so her. She lives by herself and her son visited her to take care of her needs. She she denies any headache, dizziness. In the emergency a CT scan of the head, spine, chest, abdomen and pelvis were done for trauma came back negative for any acute findings. Picture of liver cirrhosis suspected as well. Admitted for further evaluation and treatment. Hospital course The patient was admitted to the hospital after sustaining a fall at home. She was noted to have labs abnormality suggestive of her abdomen lysis. She was admitted to the hospital and started treatment with IV fluid with good response as the kidney function remained stable around baseline. She was noted to have transaminitis which seems to be chronic but worsened. Numbers have improved during the hospital stay back to baseline. She does not have a clear diagnosis of the liver disease but her and the family are aware of advanced liver disease. She was started on lactulose to control bowel motions as ammonia level was noted to be elevated. Improved down to 50s. To follow-up with PCP. her blood pressure was noted to be elevated. She was started amlodipine on top of her home medication with fair response. To continue with at the time of discharge. Evaluated by Physical therapy who recommended 24 hour care or short-term rehab. Patient will go for rehab from the hospital. Her mental status noticed to be fluctuating. Seems to be a result of hospital induced delirium. Improved with Re orientation and Seroquel. will need less than 30 days in SNF Time Spent with Patient Time attestation: Total time spent providing and/or coordinating discharge services: Physical Exam Vital Signs: Vital Signs: Last Vital Signs Temp 98.9 F 07/19/20 11:43 Pulse 67 07/19/20 11:43 Resp 18 07/19/20 11:43 BP 154/70 H 07/19/20 11:43 Pulse Ox 99 07/19/20 11:43 Body Mass Index 30.9 Constitutional : Alert, oriented to time and place,not in distress Neck : Normal inspection, Supple Cardiovascular : RRR, S1 S2, no lower extremity edema Respiratory : Good bilateral air entry, no crackles, wheezes or rhonchi Gastrointestinal: soft, lax, Normal bowel sounds, Non tender Skin : Warm/Dry, bruises on the left shoulder and hip from the fall, no open wounds or drainage. Neurological : Alert & oriented x3, No focal deficit DS: Data Data Completed and Pending Labs on day of discharge: 07/15/20 13:05 ondansetron HCL [Zofran] 4 mg IVPUSH ONCE ONE 07/15/20 13:06 ECG 12 lead EKG Stat EKG Documentation DIRECTED CT abdomen pelvis wo con Stat CT cervical spine wo con Stat CT chest wo con Stat CT head/brain wo con Stat 07/15/20 14:01 Basic Metabolic Panel Stat Complete Blood Count Auto Diff Stat Creatine Kinase Total Stat Lactic Acid Stat Lipase Stat Liver Panel Stat Magnesium Stat Troponin-I High Sensitivity Stat 07/15/20 14:28 Ethanol Stat 07/15/20 15:00 0.9 % Sodium Chloride [Ns] 1,000 ml IVCONT 999 mls/hr 07/15/20 16:30 Ammonia Stat 07/15/20 17:29 Transfer Order Routine 07/15/20 17:39 SARS COV2 PCR INHOUSE Stat 07/15/20 Dinner Low Sodium Diet 07/15/20 19:51 0.9 % Sodium Chloride [Ns] 1,000 ml IVCONT 60 mls/hr 07/16/20 01:04 hydrALAZINE HCl [Apresoline] 5 mg IVPUSH ONCE ONE 07/16/20 03:20 Labetalol HCL [Normodyne] 10 mg IVPUSH ONCE ONE 07/16/20 03:56 UA CC w/rflx Micro + Cult Stat 07/16/20 06:10 Ammonia Routine Basic Metabolic Panel DAILY@0600 Complete Blood Count no Diff DAILY@0600 Liver Panel DAILY@0600 07/16/20 08:12 Lactulose [Chronulac] 20 gm PO ONCE ONE 07/16/20 09:00 amLODIPine Besylate [Norvasc] 2.5 mg PO DAILY 07/17/20 06:47 Basic Metabolic Panel DAILY@0600 Complete Blood Count Auto Diff DAILY@0600 Liver Panel Routine SLIDE REVIEW Routine 07/17/20 09:00 amLODIPine Besylate [Norvasc] 2.5 mg PO DAILY amLODIPine Besylate [Norvasc] 5 mg PO DAILY 07/17/20 09:49 Lactulose [Chronulac] 20 gm PO ONCE ONE 07/18/20 05:54 Ammonia Routine Basic Metabolic Panel DAILY@0600 Complete Blood Count no Diff DAILY@0600 07/18/20 20:21 hydrALAZINE HCl [Apresoline] 5 mg IVPUSH ONCE ONE 07/19/20 06:06 Basic Metabolic Panel DAILY@0600 07/19/20 11:41 Glucose, Whole Blood Routine Laboratory Last Values WBC 6.4 X10*3/uL (4.8-10.8) 07/18/20 05:54 RBC 3.70 X10*6/uL (4.20-5.50) L 07/18/20 05:54 Hgb 12.3 g/dl (12.0-16.0) 07/18/20 05:54 Hct 37.1 % (37-47) 07/18/20 05:54 MCV 100.3 fL (80-98) H 07/18/20 05:54 MCH 33.2 pg (27.0-33.0) H 07/18/20 05:54 MCHC 33.2 g/dl (31.0-35.0) 07/18/20 05:54 RDW 14.6 % (11.0-16.0) 07/18/20 05:54 Plt Count 100 X10*3/uL (160-400) L 07/18/20 05:54 MPV 12.3 fL (9.4-12.3) 07/18/20 05:54 Immature Gran % (Auto) 0.2 % (0.0-0.4) 07/17/20 06:47 Neut % (Auto) 34.1 % (45-73) L 07/17/20 06:47 Lymph % (Auto) 48.6 % (20-40) H 07/17/20 06:47 [place] % (Auto) 12.7 % (2-11) H 07/17/20 06:47 Eos % (Auto) 4.2 % (0-4) H 07/17/20 06:47 Baso % (Auto) 0.2 % (0-2) 07/17/20 06:47 Lymph # (Auto) 2.3 X10*3/uL (1.2-4.9) 07/17/20 06:47 [place] # (Auto) 0.6 X10*3/uL (0.1-1.2) 07/17/20 06:47 Eos # (Auto) 0.2 X10*3/uL (0.0-0.4) 07/17/20 06:47 Baso # (Auto) 0.0 X10*3/uL (0.0-0.2) 07/17/20 06:47 Abs Immat Gran (auto) 0.01 X10*3/uL (0.00-0.03) 07/17/20 06:47 Absolute Neuts (auto) 1.6 X10*3/uL (2.0-8.3) L 07/17/20 06:47 Absolute Nucleated RBC 0.000 X10*3/uL (0.0-0.012) 07/18/20 05:54 Nucleated RBC % (auto) 0.0 /100WBC (0.0-0.2) 07/18/20 05:54 Smear Tech's Comments VERIFIED 07/17/20 06:47 Sodium 140 mmol/L (135-145) 07/19/20 06:06 Potassium 4.0 mmol/l (3.3-5.1) 07/19/20 06:06 Chloride 107 mmol/L (96-108) 07/19/20 06:06 Carbon Dioxide 27 mmol/L (22-29) 07/19/20 06:06 Anion Gap 10 (12-20) L 07/19/20 06:06 BUN 13 mg/dL (9-16) 07/19/20 06:06 Creatinine 0.66 mg/dL (0.5-1.4) 07/19/20 06:06 Estim Creat Clear Calc 58.1 07/19/20 06:06 Estimated GFR > 60 07/19/20 06:06 POC Glucose 95 mg/dL (60-115) 07/19/20 11:41 Random Glucose 80 mg/dL (60-115) 07/19/20 06:06 Lactic Acid 1.2 mmol/L (0.5-2.0) 07/15/20 14:01 Calcium 7.7 mg/dL (8.4-10.2) L 07/19/20 06:06 Magnesium 1.7 mg/dL (1.6-2.6) 07/15/20 14:01 Total Bilirubin 1.7 mg/dL (0.0-1.0) H 07/17/20 06:47 Direct Bilirubin 1.0 mg/dL (0.0-0.5) H 07/17/20 06:47 AST 74 U/L (5-31) H 07/17/20 06:47 ALT 36 U/L (0-31) H 07/17/20 06:47 Alkaline Phosphatase 99 U/L (39-117) 07/17/20 06:47 Ammonia 53 umol/L (13-55) 07/18/20 05:54 Total Creatine Kinase 1490 U/L (26-140) H 07/15/20 14:01 Troponin I High Sens 8.1 ng/L (<3.5-17.0) 07/15/20 14:01 Total Protein 5.4 g/dL (6.5-8.0) L 07/17/20 06:47 Albumin 2.8 g/dL (3.5-5.0) L 07/17/20 06:47 Lipase 26 U/L (8-78) 07/15/20 14:01 Urine Color YELLOW 07/15/20 16:30 Urine Appearance CLEAR 07/15/20 16:30 Urine pH 6.5 (5.0-8.0) 07/15/20 16:30 Ur Specific [place] 1.020 (1.005-1.025) 07/15/20 16:30 Urine Protein NEG MG/DL (NEG-TRACE) 07/15/20 16:30 Urine Glucose (UA) NEG MG/DL (NEG) 07/15/20 16:30 Urine Ketones NEG MG/DL (NEG) 07/15/20 16:30 Urine Blood NEG (NEG) 07/15/20 16:30 Urine Nitrite NEG (NEG) 07/15/20 16:30 Ur Leukocyte Esterase NEG (NEG) 07/15/20 16:30 Ethyl Alcohol < 10 mg/dL 07/15/20 14:28 Coronavirus (PCR) NEGATIVE (Negative) 07/15/20 17:39 Hep Bs Antigen Negative (Negative) 07/16/20 06:10 Hep Bs Antibody NONREACTIVE (Nonreactive) 07/16/20 06:10 Hep B Core Total Ab Nonreactive (Nonreactive) 07/16/20 06:10 Hepatitis C Ab (EIA) Nonreactive (Nonreactive) 07/16/20 06:10 Preliminary micro results at discharge 07/15/20 14:28 Blood Culture - Preliminary Blood - Venous No growth after 48 hours. 07/15/20 14:01 Blood Culture - Preliminary Blood - Venous No growth after 48 hours. Discharge Plan Discharge Patient Disposition: er SNF Referrals: [facility] [Outside] Carine Patel DO [Primary Care Provider] - Discharge Medications: New amlodipine 5 mg tablet 5 mg PO DAILY Qty: 30 RF: 0 lactulose 20 gram/30 mL Solution 20 g PO DAILY Qty: 900 RF: 0 Continued trazodone 50 mg Tablet 50 mg PO BEDTIME PRN (Reason: Sleep) RF: 0 oxybutynin chloride [Ditropan XL] 10 mg Tablet Extended Release 24hr 10 mg PO DAILY RF: 0 omeprazole 40 mg Capsule,Delayed Release(Dr/Ec) 40 mg PO DAILY RF: 0 aspirin 81 mg Tablet,Delayed Release (Dr/Ec) 81 mg PO DAILY RF: 0 lisinopril 40 mg Tablet 40 mg PO DAILY RF: 0 sertraline 50 mg Tablet 50 mg PO DAILY RF: 0 loratadine 10 mg Tablet 10 mg PO DAILY RF: 0 quetiapine [Seroquel] 50 mg Tablet 50 mg PO DAILY RF: 0 calcium carbonate-vitamin D3 [Calcium 600 + D(3)] 600 mg(1,500mg) -400 unit Tablet 1 tab PO BID RF: 0 cholecalciferol (vitamin D3) [Vitamin D3] 50 mcg (2,000 unit) Tablet 50 mcg PO DAILY RF: 0 Discharge Orders: Discharge Order (Routine); Ordered 07/19/20 Ordered By: Delgado Sterling Diet: advance to your usual diet Activity on Discharge: As tolerated Visit Report Forms: Patient Portal Discharge page Care Plan Goals: read below Health Concerns: read below Plan of Treatment: you were admitted to the hospital after sustaining a fall at home. You were noticed to have muscle breakdown which was treated with IV fluids to with good response. You were evaluated by Physical therapy who recommended short-term rehab. Her blood pressure was significantly elevated during the hospital stay requiring addition of new medication called amlodipine. Your blood pressure is better controlled at this point. Your liver enzyme seems to be chronically elevated. Images of the abdomen was consistent with advanced liver disease and possible cirrhosis. You were started on lactulose to help with your bowel movements. Start amlodipine 5 mg daily continue home medications To follow-up with PCP within 2 weeks
[2020-07-22 11:36] LABS: Hepatitis A Antibody IgM 0.81 Index (0-0.79)
[2020-07-22 11:39] LABS: ~Hepatitis A Antibody IgM GRAYZONE (Nonreactive)
== END 2020-07-19 16:30 | disposition skilled nursing facility (03) | DRG 564 ==
LOC: HO.ED 16:55 → HO.IMC 18:10
PROVIDERS: Emergency Medicine; Admitting Provider Student in an Organized Health Care Education/Training Program; Emergency Provider Internal Medicine; PCP Family Medicine; Visit Provider Student in an Organized Health Care Education/Training Program
DX: T79.6XXA Traumatic ischemia of muscle, initial encounter (principal); G93.41 Metabolic encephalopathy; W18.30XA Fall on same level, unspecified, initial encounter; Y93.9 Activity, unspecified; Y92.002 Bathroom of unspecified non-institutional (private) residence as the place of occurrence of the external cause; Y99.9 Unspecified external cause status; I10 Essential (primary) hypertension; K21.9 Gastro-esophageal reflux disease without esophagitis; F32.9 Major depressive disorder, single episode, unspecified; R74.01 Elevation of levels of liver transaminase levels; Z20.828 Contact with and (suspected) exposure to other viral communicable diseases; Z88.5 Allergy status to narcotic agent; Z88.6 Allergy status to analgesic agent; Z79.82 Long term (current) use of aspirin; Z79.899 Other long term (current) drug therapy
CPT/HCPCS: 36415; 70450; 71250; 72125; 74176; 80048; 80076; 80320; 81003; 82140; 82550; 82947; 83605; 83690; 83735; 84484; 85025; 85027; 86704; 86706; 86709; 86803; 87040; 87340; 93005; 96361; 96374; 97110; 97116; 97162; 99285; J1650; J2405; U0003

== ENCOUNTER 2020-08-16 08:52 | Emergency (ER) | payer MEDICARE, SELFPAY ==
--- NOTE | 2020-08-16 09:02 | ECG_ITS ---
Test Reason : AMS Blood Pressure : / mmHG Vent. Rate : 074 BPM Atrial Rate : 074 BPM P-R Int : 158 ms QRS Dur : 082 ms QT Int : 408 ms P-R-T Axes : 017 -05 029 degrees QTc Int : 452 ms Normal sinus rhythm Moderate voltage criteria for LVH, may be normal variant Borderline ECG When compared with ECG of 15-JUL-2020 13:24, No significant change was found Referred By: Sherrie Turcios Electronically Signed By:VAZQUEZ NEVES
--- NOTE | 2020-08-16 09:02 | CT_ITS ---
EXAMINATION: CT BRAIN WITHOUT CONTRAST. CHEST. CLINICAL INFORMATION: AMS. COMPARISON: CT brain 07/15/2020 TECHNIQUE: 5 mm thin axial and reformatted 2 mm thin sagittal and coronal images of brain were obtained. DLP 615 mGy. Chest one view. FINDINGS: BRAIN: There is there is minimal dependent blood seen in the occipital horns of lateral ventricle, more prominent than the previous exam from 07/15/2020. Allergies no known. There is no extra-axial bleed, masses or collection. The lateral ventricles are enlarged and so are the cortical sulci. The third of the fourth ventricle is prominent similar previous study. The virk to white matter difference is maintained. Bone windows reveal no calvarial abnormality. Bilateral paranasal sinuses are well-aerated and clear. There is no scalp soft tissue abnormality. CHEST X-RAY: The lungs are well-expanded and clear of acute process. Heart size and pulmonary vascularity is normal. No gross bony abnormality seen. CT/CT head/brain wo con IMPRESSION: Bilateral dependent hemorrhage within the occipital horns of lateral ventricle slightly more prominent than 07/15/2020. There is no calvarial fracture or scalp soft tissue swelling seen. Unremarkable chest exam.
--- NOTE | 2020-08-16 09:07 | ED_ITS ---
HPI - Altered Mental Status General Chief Complaint: Altered Mental Status Stated Complaint: AMS Time Seen by Provider: 08/16/20 08:53 Source: EMS Mode of arrival: EMS History of Present Illness HPI narrative: 80 year old female with PMHx of mild dementia, HTN, GERD, depression, metabolic encephalopathy, liver disease, BIBA from SNF for AMS noted this AM. Per EMS patient was found in bed, lethargic / altered, unclear patient's baseline although known history of mild dementia. EMS denied falls/trauma. Unknown last well time Related Data Home Medications Medication Instructions Recorded Confirmed aspirin 81 mg PO DAILY 07/15/20 08/16/20 calcium carbonate-vitamin D3 1 tab PO BID 07/15/20 08/16/20 [Calcium 600 + D(3)] cholecalciferol (vitamin D3) 50 mcg PO DAILY 07/15/20 08/16/20 [Vitamin D3] lisinopril 40 mg PO DAILY 07/15/20 08/16/20 loratadine 10 mg PO DAILY 07/15/20 08/16/20 omeprazole 40 mg PO DAILY 07/15/20 08/16/20 oxybutynin chloride [Ditropan XL] 10 mg PO DAILY 07/15/20 08/16/20 quetiapine [Seroquel] 50 mg PO DAILY 07/15/20 08/16/20 sertraline 50 mg PO DAILY 07/15/20 08/16/20 trazodone 50 mg PO TID PRN 07/15/20 08/16/20 Anusol-HC BID 08/16/20 Calcium 600 + D(3) 600 mg PO BID 08/16/20 08/16/20 Fleet Enema See Rx Instructions .ROUTE .COMPLEX 08/16/20 08/16/20 Preparation H See Rx Instructions .ROUTE .COMPLEX 08/16/20 08/16/20 bisacodyl 10 mg PO DAILY PRN 08/16/20 08/16/20 lactulose 10 g PO BID 08/16/20 08/16/20 senna See Rx Instructions .ROUTE .COMPLEX 08/16/20 08/16/20 Previous Rx's Medication Instructions Recorded amlodipine 5 mg PO DAILY #30 tab 07/19/20 Allergies Allergy/AdvReac Type Severity Reaction Status Date / Time ibuprofen [IBUPROFEN] Allergy Intermediate SWELLING Verified 07/15/20 20:57 cashew nut Allergy Unknown UNKNOWN Verified 07/15/20 20:57 nut - unspecified [nut] Allergy Unknown UNKNOWN Verified 07/15/20 20:57 perfume Allergy Unknown UNKNOWN Verified 07/15/20 20:57 acetaminophen [From PERCOCET] AdvReac Unknown NAUSEA & Verified 07/15/20 20:57 VOMITING oxycodone [From PERCOCET] AdvReac Unknown NAUSEA & Verified 07/15/20 20:57 VOMITING DETERGENT Allergy Unknown UNKNOWN Uncoded 05/26/20 15:33 Review of Systems Review of Systems: review of systems unobtainable due to AMS [facility] Past Medical History Attestation statement: The following information was validated with the patient. Medical History (Updated 08/16/20 @ 17:49 by BECCA Matias) Asthma Dementia Elevated liver enzymes Fall HTN (hypertension) Liver disease Syncope Social History Social History (Updated 07/15/20 @ 13:34 by Sera Aquino DO) Household Members: None Housing: Unknown / Unable to assess Alcohol intake: unknown Smoking Status: Unknown if ever smoked Use of substances other than those prescribed or required for medical reasons: No Advance Directives: No Advance Directives Information Provided: Yes Physical Exam Vital Signs: Vital Signs: Last Vital Signs Temp 98.2 F 08/16/20 09:08 Pulse 66 08/16/20 16:14 Resp 15 08/16/20 16:14 BP 133/55 L 08/16/20 16:14 Pulse Ox 99 08/16/20 16:14 Body Mass Index 30.0 Const: Other: opens eyes randomly to verbal/physical stimulation, withdraws to painful stimuli General: patient obtunded Orientation/consciousness: patient obtunded HENMT: Head: Yes normal to inspection Ears: hearing grossly normal bilaterally General nose exam: Normal external nose present Face and sinus: Yes normal facial exam Eyes: General: appearance normal, both eyes and all related structures Pupils: Equal, round and reactive pupils present EOM: EOMs intact bilaterally Neck: Neck: Yes normal visual inspection Resp: Effort & Inspection: normal respiratory effort Auscultation: crackles (bibasilar) Cardio: Rate: regular rate Heart sounds: S1 normal heart sound present and S2 normal heart sound present GI: Inspection: Yes normal to inspection Palpation (GI): Soft to palpation, nontender, no guarding and not rigid Skin: Rashes: no rashes Wounds: no wounds Neuro: General: patient obtunded Cranial nerves: Yes Equal, round and reactive pupils present Extrem: Other: no LE edema General: Yes normal to inspection Course Course Course Narrative: -bilirubins mildly elevated, ammonia elevated at 173 > will give rectal lactulose -UA neg -Head CT showing bilateral dependent hemorrhage within occipital horns of lateral ventricle slightly more prominent than 07/15/2020 > CT read clarified with radiologist Dr. Ballesteros, reports area minimally visible on prior CT, however, today worse > neurology paged -CXR unremarkable -spoke to Neurology, Dr. Ortiz, recommended LP to rule out SAH > then if positive patient will need CTA to rule out aneurysm -1253--Two physician emergent consent signed and in patients chart. LP atraumatic with pink tinged CSF, concerning for SAH -1300-- neurology recommended CTA here to rule out aneurysm/AVM. I questioned whether patient should be transferred, neurologist stated if something visualized on CTA will transfer to other facility, if WNL will admit here for further management -165-- CTA showing stable small volume intraventricular hemorrhagic products layering within the occipital horns of the lateral ventricles. No evidence of hemorrhagic expansion. CTA of the head and neck without proximal occlusion or flow-limiting stenosis. No aneurysm or vascular malformation >> due to patient's continued AMS/lethargy, will discuss with [facility] for transfer, patient is full code. -case discussed with [facility] neuro electric clock mechanic Dr. Han who consulted w/Dr. Shea, plan to admit patient to Hospitalist at [facility] for further management -175--repeat ammonia 98 after rectal lactulose and 1L IVF, additional lactulose and IVF have been ordered -spoke to [facility] hospitalist malka Huynhver, patient will be accepted to [facility] neuro intermediate care unit, accepting physician Dr. Kunz Procedures Lumbar Puncture Patient Position: left lateral decubitus Skin Prep: Povidone-Iodine 1% Local Anesthetic: lidocaine 2% (5cc) Spinal Needle Gauge: 22G Interspace Used: L4-L5 Fluid Initially Obtained: bloody Complications: none Additional Comments: Procedure performed by Dr. Aquino MDM - Altered Mental Status MDM Narrative Medical decision making narrative: 80 year old female with PMHx of mild dementia, HTN, GERD, depression, metabolic encephalopathy, liver disease, BIBA from SNF for AMS noted this AM. On exam VSS, NAD, obtunded, opens eyes during exam, atraumatic. Concern for encephaolopathy vs metabolic abnls vs infectious etiology. Lower concern for CVA or ICH without known trauma Plan: EKG, labs, UA, lactate, blood cultures, CXR, Head CT, Reassess Differential Diagnosis Differential diagnosis: Likely altered mental status, delirium, dementia, encephalopathy and renal failure Medical Records Attestation: I reviewed the patient's medical records. Lab Data Result diagrams: 08/16/20 09:32 08/16/20 09:32 Labs: Lab Results 08/16/20 08/16/20 08/16/20 Range/Units 09:32 09:32 09:32 WBC 6.0 (4.8-10.8) X10*3/uL RBC 4.09 L (4.20-5.50) X10*6/uL Hgb 13.5 (12.0-16.0) g/dl Hct 39.4 (37-47) % MCV 96.3 (80-98) fL MCH 33.0 (27.0-33.0) pg MCHC 34.3 (31.0-35.0) g/dl RDW 14.9 (11.0-16.0) % Plt Count 145 L D (160-400) X10*3/uL MPV 12.0 (9.4-12.3) fL Immature Gran % (Auto) 0.2 (0.0-0.4) % Neut % (Auto) 45.6 (45-73) % Lymph % (Auto) 41.7 H (20-40) % [place] % (Auto) 10.1 (2-11) % Eos % (Auto) 1.7 (0-4) % Baso % (Auto) 0.7 (0-2) % Lymph # (Auto) 2.5 (1.2-4.9) X10*3/uL [place] # (Auto) 0.6 (0.1-1.2) X10*3/uL Eos # (Auto) 0.1 (0.0-0.4) X10*3/uL Baso # (Auto) 0.0 (0.0-0.2) X10*3/uL Abs Immat Gran (auto) 0.01 (0.00-0.03) X10*3/uL Absolute Neuts (auto) 2.8 (2.0-8.3) X10*3/uL Absolute Nucleated RBC 0.000 (0.0-0.012) X10*3/uL Nucleated RBC % (auto) 0.0 (0.0-0.2) /100WBC PT 15.3 H (10.8-13.0) SEC INR 1.3 H (0.9-1.1) APTT 33.8 (24.1-38.0) SEC Hold Blue Top SEE NOTE Sodium 142 (135-145) mmol/L Potassium 4.3 (3.3-5.1) mmol/l Chloride 111 H (96-108) mmol/L Carbon Dioxide 23 (22-29) mmol/L Anion Gap 12 (12-20) BUN 21 H D (9-16) mg/dL Creatinine 0.81 (0.5-1.4) mg/dL Estim Creat Clear Calc 54.6 Estimated GFR > 60 Random Glucose 105 (60-115) mg/dL Lactic Acid (0.5-2.0) mmol/L Calcium 8.9 D (8.4-10.2) mg/dL Magnesium 2.2 (1.6-2.6) mg/dL Total Bilirubin 1.5 H (0.0-1.0) mg/dL Direct Bilirubin 0.7 H (0.0-0.5) mg/dL AST 47 H (5-31) U/L ALT 27 (0-31) U/L Alkaline Phosphatase 136 H D (39-117) U/L Ammonia (13-55) umol/L Total Creatine Kinase (26-140) U/L Troponin I High Sens (<3.5-17.0) ng/L B-Natriuretic Peptide (<100) pg/mL Total Protein 6.6 D (6.5-8.0) g/dL Albumin 3.0 L (3.5-5.0) g/dL Lipase 34 (8-78) U/L Urine Color Urine Appearance Urine pH (5.0-8.0) Ur Specific [place] (1.005-1.025) Urine Protein (NEG-TRACE) MG/DL Urine Glucose (UA) (NEG) MG/DL Urine Ketones (NEG) MG/DL Urine Blood (NEG) Urine Nitrite (NEG) Ur Leukocyte Esterase (NEG) Urine RBC (0) /HPF Urine WBC (0-4) /HPF Ur Squamous Epith Cells /LPF Urine Bacteria /LPF CSF Tube Number CSF Volume ML CSF Appearance CSF Color CSF WBC MM*3 CSF RBC MM*3 CSF Neutrophils % CSF Lymphocytes % CSF Monocytes % % CSF Other Cells % % 08/16/20 08/16/20 08/16/20 Range/Units 09:32 09:32 09:32 WBC (4.8-10.8) X10*3/uL RBC (4.20-5.50) X10*6/uL Hgb (12.0-16.0) g/dl Hct (37-47) % MCV (80-98) fL MCH (27.0-33.0) pg MCHC (31.0-35.0) g/dl RDW (11.0-16.0) % Plt Count (160-400) X10*3/uL MPV (9.4-12.3) fL Immature Gran % (Auto) (0.0-0.4) % Neut % (Auto) (45-73) % Lymph % (Auto) (20-40) % [place] % (Auto) (2-11) % Eos % (Auto) (0-4) % Baso % (Auto) (0-2) % Lymph # (Auto) (1.2-4.9) X10*3/uL [place] # (Auto) (0.1-1.2) X10*3/uL Eos # (Auto) (0.0-0.4) X10*3/uL Baso # (Auto) (0.0-0.2) X10*3/uL Abs Immat Gran (auto) (0.00-0.03) X10*3/uL Absolute Neuts (auto) (2.0-8.3) X10*3/uL Absolute Nucleated RBC (0.0-0.012) X10*3/uL Nucleated RBC % (auto) (0.0-0.2) /100WBC PT (10.8-13.0) SEC INR (0.9-1.1) APTT (24.1-38.0) SEC Hold Blue Top Sodium (135-145) mmol/L Potassium (3.3-5.1) mmol/l Chloride (96-108) mmol/L Carbon Dioxide (22-29) mmol/L Anion Gap (12-20) BUN (9-16) mg/dL Creatinine (0.5-1.4) mg/dL Estim Creat Clear Calc Estimated GFR Random Glucose (60-115) mg/dL Lactic Acid 1.2 (0.5-2.0) mmol/L Calcium (8.4-10.2) mg/dL Magnesium (1.6-2.6) mg/dL Total Bilirubin (0.0-1.0) mg/dL Direct Bilirubin (0.0-0.5) mg/dL AST (5-31) U/L ALT (0-31) U/L Alkaline Phosphatase (39-117) U/L Ammonia (13-55) umol/L Total Creatine Kinase 46 D (26-140) U/L Troponin I High Sens 7.8 (<3.5-17.0) ng/L B-Natriuretic Peptide 81 (<100) pg/mL Total Protein (6.5-8.0) g/dL Albumin (3.5-5.0) g/dL Lipase (8-78) U/L Urine Color Urine Appearance Urine pH (5.0-8.0) Ur Specific [place] (1.005-1.025) Urine Protein (NEG-TRACE) MG/DL Urine Glucose (UA) (NEG) MG/DL Urine Ketones (NEG) MG/DL Urine Blood (NEG) Urine Nitrite (NEG) Ur Leukocyte Esterase (NEG) Urine RBC (0) /HPF Urine WBC (0-4) /HPF Ur Squamous Epith Cells /LPF Urine Bacteria /LPF CSF Tube Number CSF Volume ML CSF Appearance CSF Color CSF WBC MM*3 CSF RBC MM*3 CSF Neutrophils % CSF Lymphocytes % CSF Monocytes % % CSF Other Cells % % 08/16/20 08/16/20 08/16/20 Range/Units 10:10 10:22 12:52 WBC (4.8-10.8) X10*3/uL RBC (4.20-5.50) X10*6/uL Hgb (12.0-16.0) g/dl Hct (37-47) % MCV (80-98) fL MCH (27.0-33.0) pg MCHC (31.0-35.0) g/dl RDW (11.0-16.0) % Plt Count (160-400) X10*3/uL MPV (9.4-12.3) fL Immature Gran % (Auto) (0.0-0.4) % Neut % (Auto) (45-73) % Lymph % (Auto) (20-40) % [place] % (Auto) (2-11) % Eos % (Auto) (0-4) % Baso % (Auto) (0-2) % Lymph # (Auto) (1.2-4.9) X10*3/uL [place] # (Auto) (0.1-1.2) X10*3/uL Eos # (Auto) (0.0-0.4) X10*3/uL Baso # (Auto) (0.0-0.2) X10*3/uL Abs Immat Gran (auto) (0.00-0.03) X10*3/uL Absolute Neuts (auto) (2.0-8.3) X10*3/uL Absolute Nucleated RBC (0.0-0.012) X10*3/uL Nucleated RBC % (auto) (0.0-0.2) /100WBC PT (10.8-13.0) SEC INR (0.9-1.1) APTT (24.1-38.0) SEC Hold Blue Top Sodium (135-145) mmol/L Potassium (3.3-5.1) mmol/l Chloride (96-108) mmol/L Carbon Dioxide (22-29) mmol/L Anion Gap (12-20) BUN (9-16) mg/dL Creatinine (0.5-1.4) mg/dL Estim Creat Clear Calc Estimated GFR Random Glucose (60-115) mg/dL Lactic Acid (0.5-2.0) mmol/L Calcium (8.4-10.2) mg/dL Magnesium (1.6-2.6) mg/dL Total Bilirubin (0.0-1.0) mg/dL Direct Bilirubin (0.0-0.5) mg/dL AST (5-31) U/L ALT (0-31) U/L Alkaline Phosphatase (39-117) U/L Ammonia 173 H (13-55) umol/L Total Creatine Kinase (26-140) U/L Troponin I High Sens (<3.5-17.0) ng/L B-Natriuretic Peptide (<100) pg/mL Total Protein (6.5-8.0) g/dL Albumin (3.5-5.0) g/dL Lipase (8-78) U/L Urine Color YELLOW Urine Appearance HAZY Urine pH 8.5 H (5.0-8.0) Ur Specific [place] 1.020 (1.005-1.025) Urine Protein NEG (NEG-TRACE) MG/DL Urine Glucose (UA) NEG (NEG) MG/DL Urine Ketones NEG (NEG) MG/DL Urine Blood TRACE (NEG) Urine Nitrite NEG (NEG) Ur Leukocyte Esterase NEG (NEG) Urine RBC 0-2 (0) /HPF Urine WBC 0-2 (0-4) /HPF Ur Squamous Epith Cells NONE /LPF Urine Bacteria NONE /LPF CSF Tube Number 4 CSF Volume 1.0 ML CSF Appearance CLOUDY CSF Color PINK CSF WBC 6 MM*3 CSF RBC 6300 MM*3 CSF Neutrophils 0 % CSF Lymphocytes 100 % CSF Monocytes % 0 % CSF Other Cells % 0 % 08/16/20 Range/Units 16:55 WBC (4.8-10.8) X10*3/uL RBC (4.20-5.50) X10*6/uL Hgb (12.0-16.0) g/dl Hct (37-47) % MCV (80-98) fL MCH (27.0-33.0) pg MCHC (31.0-35.0) g/dl RDW (11.0-16.0) % Plt Count (160-400) X10*3/uL MPV (9.4-12.3) fL Immature Gran % (Auto) (0.0-0.4) % Neut % (Auto) (45-73) % Lymph % (Auto) (20-40) % [place] % (Auto) (2-11) % Eos % (Auto) (0-4) % Baso % (Auto) (0-2) % Lymph # (Auto) (1.2-4.9) X10*3/uL [place] # (Auto) (0.1-1.2) X10*3/uL Eos # (Auto) (0.0-0.4) X10*3/uL Baso # (Auto) (0.0-0.2) X10*3/uL Abs Immat Gran (auto) (0.00-0.03) X10*3/uL Absolute Neuts (auto) (2.0-8.3) X10*3/uL Absolute Nucleated RBC (0.0-0.012) X10*3/uL Nucleated RBC % (auto) (0.0-0.2) /100WBC PT (10.8-13.0) SEC INR (0.9-1.1) APTT (24.1-38.0) SEC Hold Blue Top Sodium (135-145) mmol/L Potassium (3.3-5.1) mmol/l Chloride (96-108) mmol/L Carbon Dioxide (22-29) mmol/L Anion Gap (12-20) BUN (9-16) mg/dL Creatinine (0.5-1.4) mg/dL Estim Creat Clear Calc Estimated GFR Random Glucose (60-115) mg/dL Lactic Acid (0.5-2.0) mmol/L Calcium (8.4-10.2) mg/dL Magnesium (1.6-2.6) mg/dL Total Bilirubin (0.0-1.0) mg/dL Direct Bilirubin (0.0-0.5) mg/dL AST (5-31) U/L ALT (0-31) U/L Alkaline Phosphatase (39-117) U/L Ammonia 98 H (13-55) umol/L Total Creatine Kinase (26-140) U/L Troponin I High Sens (<3.5-17.0) ng/L B-Natriuretic Peptide (<100) pg/mL Total Protein (6.5-8.0) g/dL Albumin (3.5-5.0) g/dL Lipase (8-78) U/L Urine Color Urine Appearance Urine pH (5.0-8.0) Ur Specific [place] (1.005-1.025) Urine Protein (NEG-TRACE) MG/DL Urine Glucose (UA) (NEG) MG/DL Urine Ketones (NEG) MG/DL Urine Blood (NEG) Urine Nitrite (NEG) Ur Leukocyte Esterase (NEG) Urine RBC (0) /HPF Urine WBC (0-4) /HPF Ur Squamous Epith Cells /LPF Urine Bacteria /LPF CSF Tube Number CSF Volume ML CSF Appearance CSF Color CSF WBC MM*3 CSF RBC MM*3 CSF Neutrophils % CSF Lymphocytes % CSF Monocytes % % CSF Other Cells % % Discharge Plan Discharge Clinical Impression: Intraventricular hemorrhage, Metabolic encephalopathy, Altered mental status Patient Disposition: [facility] Prescriptions: No Action trazodone 50 mg Tablet 50 mg PO TID PRN (Reason: Sleep) RF: 0 oxybutynin chloride [Ditropan XL] 10 mg Tablet Extended Release 24hr 10 mg PO DAILY RF: 0 omeprazole 40 mg Capsule,Delayed Release(Dr/Ec) 40 mg PO DAILY RF: 0 aspirin 81 mg Tablet,Delayed Release (Dr/Ec) 81 mg PO DAILY RF: 0 lisinopril 40 mg Tablet 40 mg PO DAILY RF: 0 sertraline 50 mg Tablet 50 mg PO DAILY RF: 0 loratadine 10 mg Tablet 10 mg PO DAILY RF: 0 quetiapine [Seroquel] 50 mg Tablet 50 mg PO DAILY RF: 0 calcium carbonate-vitamin D3 [Calcium 600 + D(3)] 600 mg(1,500mg) -400 unit Tablet 1 tab PO BID RF: 0 cholecalciferol (vitamin D3) [Vitamin D3] 50 mcg (2,000 unit) Tablet 50 mcg PO DAILY RF: 0 amlodipine 5 mg tablet 5 mg PO DAILY Qty: 30 RF: 0 lactulose 20 gram/30 mL solution 10 g PO BID RF: 0 Anusol-HC BID RF: 0 Calcium 600 + D(3) 600 mg PO BID RF: 0 Fleet Enema See Rx Instructions .ROUTE .COMPLEX RF: 0 Preparation H See Rx Instructions .ROUTE .COMPLEX RF: 0 bisacodyl 10 mg PO DAILY PRN (Reason: Constipation) RF: 0 senna See Rx Instructions .ROUTE .COMPLEX RF: 0
[2020-08-16 09:08] VITALS: BP 137/55; BP 152/57; PULSE 73; PULSE 75; RESP 16; TEMP 36.8; O2SAT 98
[2020-08-16] MEDS: 0.9 % Sodium Chloride 1,000 ML 999 ML IVCONT ×2 (09:36→18:34)
[2020-08-16 09:40] LABS: MANUAL DIFF FLAG NO
[2020-08-16 09:46] LABS: Basophils Percent Auto 0.7 % (0-2); Eosinophils Absolute Auto 0.1 X10*3/uL (0.0-0.4); Eosinophils Percent Auto 1.7 % (0-4); Hematocrit 39.4 % (37-47); Hemoglobin 13.5 g/dl (12.0-16.0); Imm Gran Abs Auto 0.01 X10*3/uL (0.00-0.03); Imm Gran Pct Auto 0.2 % (0.0-0.4); Lymphocytes Absolute Auto 2.5 X10*3/uL (1.2-4.9); Lymphocytes Percent Auto 41.7 % (20-40); Mean Corpuscular HGB Conc 34.3 g/dl (31.0-35.0); Mean Corpuscular Volume 96.3 fL (80-98); Monocytes Absolute Auto 0.6 X10*3/uL (0.1-1.2); Monocytes Percent Auto 10.1 % (2-11); Neutrophils Absolute Auto 2.8 X10*3/uL (2.0-8.3); Neutrophils Percent Auto 45.6 % (45-73); Platelet Count 145 X10*3/uL (160-400); Red Blood Count 4.09 X10*6/uL (4.20-5.50); Red Cell Distribution Width 14.9 % (11.0-16.0)
[2020-08-16 10:03] LABS: Lactic Acid 1.2 mmol/L (0.5-2.0)
[2020-08-16 10:10] LABS: Alanine Aminotransferase 27 U/L (0-31); Alkaline Phosphatase 136 U/L (39-117); Anion Gap 12 (12-20); Aspartate Amino Transferase 47 U/L (5-31); Bilirubin Direct 0.7 mg/dL (0.0-0.5); Bilirubin Total 1.5 mg/dL (0.0-1.0); Blood Urea Nitrogen 21 mg/dL (9-16); Calcium 8.9 mg/dL (8.4-10.2); Carbon Dioxide 23 mmol/L (22-29); Chloride 111 mmol/L (96-108); Creatinine Clr Calc Pharmacy 54.6; Estimated Glomerular Filt Rate > 60; Glucose Random 105 mg/dL (60-115); Lipase 34 U/L (8-78); Magnesium 2.2 mg/dL (1.6-2.6); Potassium 4.3 mmol/l (3.3-5.1); Sodium 142 mmol/L (135-145); Total Protein 6.6 g/dL (6.5-8.0)
[2020-08-16 10:14] LABS: B Type Natriuretic Peptide 81 pg/mL (<100); Troponin-I High Sensitivity 7.8 ng/L (<3.5-17.0)
[2020-08-16 10:23] VITALS: BP 140/50; PULSE 70; RESP 15; O2SAT 100
[2020-08-16 10:35] LABS: Glucose Urine UA NEG (NEG); Leukocyte Esterase Urine NEG (NEG); Nitrite Urine NEG (NEG); PH 8.5 (5.0-8.0); Urine Blood TRACE (NEG); Urine Ketones NEG (NEG); Urine Protein NEG (NEG-TRACE)
[2020-08-16 10:37] LABS: Appearance Urine HAZY; Color Urine YELLOW
[2020-08-16 10:40] LABS: Ammonia 173 umol/L (13-55)
[2020-08-16 10:47] LABS: RBC Urine 0-2 /HPF (0); WBC Urine 0-2 /HPF (0-4)
[2020-08-16] MEDS: Lactulose 20 GM/30 ML SOLUTION 30 GM PR (11:43)
[2020-08-16 12:03] LABS: INTERNATIONAL NORM RATIO 1.3 (0.9-1.1); Prothrombin Time 15.3 SEC (10.8-13.0)
[2020-08-16 12:06] LABS: Partial Thromboplastin Time 33.8 SEC (24.1-38.0)
--- NOTE | 2020-08-16 12:55 | CT_ITS ---
EXAMINATION: CT ANGIOGRAM HEAD CT ANGIOGRAM NECK CLINICAL INFORMATION: Subarachnoid hemorrhage. COMPARISON: CT head from 08/16/2020. TECHNIQUE: Initial noncontrast power plant supervisor imaging of the head and neck was performed. Comparison is made with noncontrast head CT from earlier today. Test bolus sequences followed by intravenous administration 70 mL of Omnipaque 350. Helical imaging was performed in the axial plane from the aortic arch to the skull vertex. Delayed postcontrast imaging of the head was also performed. The data was processed at the medical technologist clinical's workstation for generation of MIP sequences. Angled MIPs and volume rendered reformatted images were also generated at an offline 3D workstation. Stenoses are assessed in accordance with NASCET criteria unless otherwise indicated. DLP: 1405 mGy-cm This CT examination was performed using dose optimization techniques as appropriate, variously including the following: *Automated exposure control. *Adjustment of mA and/or kV according to patient size (this includes techniques or standardized protocols for targeted exams where dose is matched to indication/reason for exam; i.e. extremities or head). *Use of iterative reconstruction technique. FINDINGS: CT Head: Stable compared to exam from 4 hours prior, there is small volume of intraventricular hemorrhagic products layering within the occipital horns of the lateral ventricles. No evidence of hemorrhagic expansion. There is no evidence of acute edematous territorial infarction. Scattered hypoattenuation in the periventricular and deep white matter are consistent with moderate microangiopathy. Agarwal-white matter differentiation is preserved. Proportional prominence of the ventricles and sulcal spaces. No evidence for obstructive hydrocephalus. No abnormal mass effect or midline shift. No extra-axial fluid collections. No pathologic intra-axial enhancement or regional oligemia. No acute soft tissue or osseous abnormalities. Advanced destructive degeneration of the left temporomandibular joint. Mild degenerative arthropathy of the right temporomandibular joint. Bilateral lens extractions. Mild mucosal thickening of the paranasal sinuses. The mastoid air cells and middle ear cavities are clear CT Neck: The thyroid gland and remaining cervical soft tissues are within normal limits. Straightening of the normal cervical lordosis. Mild degenerative anterolistheses of C3 on C4 and C5 on C6. Moderate degenerative disc disease from C4-C7 with disc-osteophyte complexes. Prominent facet and uncovertebral joint arthropathy leads to osseous encroachment on the neural foramina from C3-T2. Right convex curvature of the thoracic spine. CT Upper Chest: Mild to moderate interlobular septal thickening and mild peripheral groundglass opacification in the visualized portions of the upper lobes. The visualized upper mediastinum are within normal limits. Neck CTA: Aortic Arch: Normal contour and caliber with mild calcific atherosclerotic disease. Two vessel branching pattern of the arch with left common carotid artery arising from the brachiocephalic trunk. Great Vessel Origins: No significant stenosis of the branch origins. Right Common Carotid Artery: Normal opacification without focal stenosis or occlusion. Cervical Right Internal Carotid Artery: Normal opacification without focal stenosis or occlusion. Left Common Carotid Artery: Normal opacification without focal stenosis or occlusion. Cervical Left Internal Carotid Artery: Normal opacification without focal stenosis or occlusion. Cervical Right Vertebral Artery: Co-dominant. Normal opacification without focal stenosis or occlusion. Cervical Left Vertebral Artery: Co-dominant. Normal opacification without focal stenosis or occlusion. Brain CTA: Intracranial Internal Carotid Arteries: Mild calcific atherosclerotic disease of the intracranial internal carotid arteries without occlusion or flow-limiting stenosis. Otherwise, normal contrast opacification of the petrous, cavernous, paraophthalmic, and supraclinoid segments of the internal carotid arteries without focal stenosis. Right Anterior Cerebral Artery: Normal A1 segment. Normal opacification of the distal segments of the IVA. Left Anterior Cerebral Artery: Normal A1 segment. Normal opacification of the distal segments of the IVA. Anterior Communicating Artery: Normal. Right Middle Cerebral Artery: Normal opacification of the M1 segment of the MCA without focal stenosis or occlusion. Normal arborization of the distal segments. Left Middle Cerebral Artery: Normal opacification of the M1 segment of the MCA without focal stenosis or occlusion. Normal arborization of the distal segments. Right Vertebral Artery: Normal opacification of the V4 segment. The posterior inferior cerebellar artery is not well opacified; however, there is no CT evidence of acute occlusion. Left Vertebral Artery: Normal opacification of the V4 segment. Normal opacification of the proximal segments of the posterior inferior cerebellar artery. Basilar Artery: Normal opacification without focal stenosis or occlusion. Normal appearance of the proximal superior cerebellar arteries. Right Posterior Cerebral Artery: Normal P1 segment. Normal posterior communicating artery. Normal opacification of the distal segments of the SENIOR WAREHOUSE CLERK. Left Posterior Cerebral Artery: Normal P1 segment. Normal opacification of the distal segments of the SENIOR WAREHOUSE CLERK. Dominant right-sided transverse/sigmoid sinus. Otherwise, normal opacification of the superior sagittal, straight, transverse, and sigmoid sinuses. CT/CT angio head neck IMPRESSION: 1. Stable small volume of intraventricular hemorrhagic products layering within the occipital horns of the lateral ventricles. No evidence of hemorrhagic expansion. 2. No evidence of acute edematous territorial infarction. 3. CTA of the head and neck without proximal occlusion or flow-limiting stenosis. No demonstrated internal cranial aneurysm or vascular malformation as a source of the intracranial hemorrhage. 4. Moderate underlying microangiopathy and generalized cerebral volume loss. 5. Moderate multilevel degenerative spinal arthropathy of the cervical spine. This critical result was discussed with Dr. Turcios at 15:42 on 08/16/2020 and it was ascertained that the content and urgency of the report was understood at the time of direct communication.
[2020-08-16] MEDS: Lidocaine HCl 2 % MPF 5 ML VIAL SUBCUT (13:10)
--- NOTE | 2020-08-16 13:10 | PC.NURSE ---
LP DONE BY DR MOSS, LIDIOCAINE GIVEN PRIOR TO PROCEDURE
[2020-08-16 13:55] LABS: Appearance CSF CLOUDY
[2020-08-16 13:56] LABS: CSF Monos 0 %; CSF Other Cells % 0 %; CSF Tube # 4; Color CSF PINK; Lymphocytes CSF 100 %; Neutrophils CSF 0 %; Red Blood Cell CSF 6300 MM*3; White Blood Cell CSF 6 MM*3
[2020-08-16] MEDS: LORazepam 2 MG/ML VIAL 1 MG IVPUSH (14:09)
[2020-08-16 14:10] VITALS: BP 136/53; PULSE 66; RESP 15; O2SAT 97
[2020-08-16] MEDS: iohexoL 350 MG/ML 100 ML INFUS..BTL 70 ML IV (14:19)
[2020-08-16 16:14] VITALS: BP 133/55; PULSE 66; RESP 15; O2SAT 99
[2020-08-16 17:40] LABS: Ammonia 98 umol/L (13-55)
[2020-08-16] MEDS: Lactulose 20 GM/30 ML SOLUTION 200 GM PR (18:02)
[2020-08-16 18:35] VITALS: BP 179/62; PULSE 78; RESP 15; O2SAT 99
--- NOTE | 2020-08-16 18:54 | PC.NURSE ---
Report given to Malgorzata at [facility].
--- NOTE | 2020-08-17 09:45 | MHC.STROKE ---
LATE ENTRY FOR NIHSS = 28. SEE SCALE, SOME AREA UNTESTABLE.
== END 2020-08-16 19:08 | disposition short-term general hospital (02) ==
PROVIDERS: Physician Assistant; Emergency Provider Emergency Medicine; PCP Family Medicine
DX: I61.5 Nontraumatic intracerebral hemorrhage, intraventricular (principal); G93.41 Metabolic encephalopathy; F03.90 Unspecified dementia, unspecified severity, without behavioral disturbance, psychotic disturbance, mood disturbance, and anxiety; R41.82 Altered mental status, unspecified; I10 Essential (primary) hypertension; Z79.899 Other long term (current) drug therapy
CPT/HCPCS: 36415; 62270; 70450; 70496; 70498; 71045; 80048; 80076; 81001; 82140; 82550; 83605; 83690; 83735; 83880; 84484; 85025; 85610; 85730; 87015; 87040; 87070; 87147; 87205; 89051; 93005; 96361; 96374; 99285; J2060; Q9967